=== PATIENT | female | born 1980 | race Caucasian/White ===

== ENCOUNTER → 2017-11-10 | Outpatient (REF) | payer OTHER | LOC: M LAB REF 12:05 | DX: N39.0 Urinary tract infection, site not specified (principal) | CPT/HCPCS: 87186 ==

== ENCOUNTER → 2018-06-30 | Outpatient (CLI) | payer OTHER ==
[2018-06-30 15:39] LABS: BASO % 0.4 % (0.0-1.0); EOS # 0.2 10^3/uL (0.0-0.50); EOS % 1.7 % (0.0-3.0); HEMATOCRIT 37.5 % (36.0-47.0); HEMOGLOBIN 12.9 g/dl (12.0-15.5); IMMATURE GRANULOCYTE % 0.2 % (0-3.0); LYMPH # 1.3 10^3/uL (1.5-4.5); LYMPH % 13.9 % (24.0-44.0); MEAN CORPUSCULAR HEMOGLOBIN 30.3 pg (27.0-33.0); MEAN CORPUSCULAR HGB CONC 34.4 g/dl (32.0-36.5); MONO # 0.5 10^3/uL (0.0-0.8); MONO % 5.4 % (0.0-5.0); NEUTROPHILS # 7.3 10^3/uL (1.8-7.7); NEUTROPHILS % 78.4 % (36.0-66.0); PLATELET COUNT, AUTOMATED 265 10^3/uL (150-450); RED BLOOD COUNT 4.26 10^6/uL (4.00-5.40); RED CELL DISTRIBUTION WIDTH 12.4 % (11.5-14.5); WHITE BLOOD COUNT 9.3 10^3/uL (4.0-10.0)
[2018-06-30 16:08] LABS: FREE T4 1.05 NG/DL (0.76-1.46)
[2018-06-30 16:20] LABS: RUBELLA IgG QUALITATIVE IMMUNE (IMMUNE)
[2018-06-30 16:21] LABS: HBsAg Prenatal NEGATIVE (NEGATIVE)
[2018-06-30 16:49] LABS: HEPATITIS C VIRUS ABY INDEX 0.1 INDEX (<0.8)
[2018-06-30 17:20] LABS: CHLAMYDIA DNA AMPLIFICATION NEGATIVE (NEGATIVE); GC DNA AMPLIFICATION NEGATIVE (NEGATIVE)
[2018-06-30 18:28] LABS: HIV 1&2 SCREEN CENTAUR NEGATIVE (NEGATIVE)
[2018-07-04 00:06] LABS: TOXOPLASMA IgM ABY <3.0 AU/mL (0.0-7.9)
[2018-07-04 00:06] LABS: TOXOPLASMA IgG ABY <3.0 IU/mL (0.0-7.1)
== END ==
LOC: M LAB 14:53
DX: Z36.89 Encounter for other specified antenatal screening (principal)
CPT/HCPCS: 84443

== ENCOUNTER → 2018-09-12 | Outpatient (CLI) | payer OTHER ==
[2018-09-12 14:41] LABS: FREE T4 1.05 NG/DL (0.76-1.46); THYROID STIMULATING HORMONE 2.6 uIU/ML (0.358-3.740)
== END ==
LOC: M LAB 13:24
PROVIDERS: ATTEND Obstetrics & Gynecology
DX: O09.522 Supervision of elderly multigravida, second trimester (principal)

== ENCOUNTER → 2018-09-13 | Outpatient (CLI) | payer OTHER ==
--- NOTE | 2018-09-14 05:40 | REP ---
Clinical: Anatomical evaluation. Comparison: None . Findings: Examination demonstrates a single live intrauterine in cephalic presentation. motion is identified by technologist. Placenta is noted anterior and grade grade zero without evidence for placenta previa or abruption. Amniotic fluid volume is normal. Cervix measures 4.8 cm in length and appears closed. No evidence for nuchal cord. Gestational age by LMP 21 weeks 5 days with MONSE 01/19/2019 . Gestational age by current measurements 21 weeks 5 days with MONSE 01/19/2019 . FHR equals 150 beats per minute. BPD 5.4 cm 22 weeks 2 days HC 18.8 cm 21 weeks 1 day AC 17.9 cm 22 weeks 6 days FL 3.7 cm 21 weeks 6 days HL 3.6 cm 22 weeks 5 days HC/AC ratio 1.05 Estimated weight 491 grams ( 65th percentile). Anatomical assessment demonstrates normal structures including cranium, choroid plexus, cavum, cerebellum/posterior fossa, facial features, lungs, four-chamber heart/ventricular outflow tracts, diaphragm, stomach, cord insertion/three-vessel cord, kidneys/bladder, spine, and extremities. Impression: Single live intrauterine in cephalic presentation demonstrating appropriate interval growth. Anatomical assessment is complete and normal. No gross abnormalities are identified. Electronically Signed by Víctor Perea MD 09/14/2018 05:31 A
== END ==
LOC: M SMT 08:38
PROVIDERS: ATTEND Obstetrics & Gynecology
DX: O09.522 Supervision of elderly multigravida, second trimester (principal); Z3A.21 21 weeks gestation of pregnancy

== ENCOUNTER → 2018-10-16 | Outpatient (CLI) | payer OTHER ==
[2018-10-16 18:15] LABS: HEMATOCRIT 33.3 % (36.0-47.0); HEMOGLOBIN 11.1 g/dl (12.0-15.5); MEAN CORPUSCULAR HEMOGLOBIN 30.1 pg (27.0-33.0); MEAN CORPUSCULAR HGB CONC 33.3 g/dl (32.0-36.5); MEAN CORPUSCULAR VOLUME 90.2 fl (80.0-96.0); PLATELET COUNT, AUTOMATED 238 10^3/uL (150-450); RED BLOOD COUNT 3.69 10^6/uL (4.00-5.40); WHITE BLOOD COUNT 10.6 10^3/uL (4.0-10.0)
== END ==
LOC: M SMT 13:16
PROVIDERS: ATTEND Obstetrics & Gynecology
DX: O09.522 Supervision of elderly multigravida, second trimester (principal); Z3A.00 Weeks of gestation of pregnancy not specified
CPT/HCPCS: 36415; 82950; 85027; 86850; 86900; 86901; J2790

== ENCOUNTER → 2018-11-13 | Outpatient (CLI) | payer OTHER ==
[2018-11-13 13:47] LABS: FREE T4 1.05 NG/DL (0.76-1.46); THYROID STIMULATING HORMONE 3.15 uIU/ML (0.358-3.740)
== END ==
LOC: M SMT 09:38
PROVIDERS: ATTEND Advanced Practice Midwife
DX: O99.89 Other specified diseases and conditions complicating pregnancy, childbirth and the puerperium (principal); Z3A.00 Weeks of gestation of pregnancy not specified

== ENCOUNTER → 2018-12-21 | Outpatient (CLI) | payer OTHER ==
[2018-12-21 15:02] LABS: FREE T4 0.96 NG/DL (0.76-1.46)
[2018-12-22 12:31] LABS: HIV 1&2 SCREEN CENTAUR NEGATIVE (NEGATIVE)
== END ==
LOC: M SMT 08:34
PROVIDERS: ATTEND Advanced Practice Midwife
DX: O09.513 Supervision of elderly primigravida, third trimester (principal); Z3A.00 Weeks of gestation of pregnancy not specified

== ENCOUNTER 2019-01-19 02:11 | Inpatient (IN) | payer OTHER ==
[2019-01-19] VITALS (22 sets, daily range): BP systolic 105–141; BP diastolic 55–94
[~2019-01-19] VITALS: Ht 167.6 cm; Wt 97.3 kg
[2019-01-19] MEDS ORDERED: LEVO125T4 PO (03:55)
[2019-01-19] MEDS ORDERED: PRENTAB9 PO (03:56)
[2019-01-19] MEDS ORDERED: LR 1,000 ML IV SCH (03:59)
[2019-01-19] MEDS ORDERED: LACTATED RINGER'S 1000 ML IV STA (03:59)
[2019-01-19 04:13] LABS: HEMATOCRIT 37.9 % (36.0-47.0); HEMOGLOBIN 12.7 g/dl (12.0-15.5); MEAN CORPUSCULAR HGB CONC 33.5 g/dl (32.0-36.5); MEAN CORPUSCULAR VOLUME 86.5 fl (80.0-96.0); PLATELET COUNT, AUTOMATED 216 10^3/uL (150-450); RED BLOOD COUNT 4.38 10^6/uL (4.00-5.40); WHITE BLOOD COUNT 15.8 10^3/uL (4.0-10.0)
[2019-01-19] MEDS ORDERED: OXYTOCIN DRIP 30 UNITS in APPROPRIATE DILUENT 1 EA IV SCH (06:15)
--- NOTE | 2019-01-19 07:12 | HPE ---
DATE OF ADMISSION: 01/19/2019 REASON FOR ADMISSION: Spontaneous rupture of membranes. HISTORY OF PRESENT ILLNESS: Mrs. Araiza is a 38-year-old, 1, that presents at 40 weeks 0 days by her last menstrual period and confirmed by a first trimester ultrasound with complaints of contractions and leakage of clear fluid that occurred approximately at 2:30 a.m. She reports active movement. Denies any vaginal bleeding. Her course has been unremarkable. She initiated care in her first trimester. PAST MEDICAL HISTORY: Hypothyroidism. PAST SURGICAL HISTORY: She has a pilonidal cyst removal. MEDICATIONS: - Synthroid 112 mcg - vitamin ALLERGIES: She has a childhood allergy to AUGMENTIN, does not know her reaction. SOCIAL HISTORY: Denies any alcohol, tobacco or drug use during . PHYSICAL EXAMINATION: Her vital signs are stable. She is afebrile. She has a category one heart tracing with contractions on tocometer. General Appearance: Well appearing, in no acute distress. Lungs: Clear to auscultation bilaterally. Cardiovascular: Heart regular rate and rhythm. Abdomen is soft, gravid, nontender. Estimated weight (EFW) 3800 grams. Cervical Exam: She is 5 cm dilated, 90% effaced, grossly ruptured. LABS: Blood type is A negative. Antibody screen is negative. Rubella is immune. RPR is nonreactive. Hepatitis surface antigen negative. HIV is negative. Hepatitis C is nonreactive. Chlamydia and gonorrhea screens are negative. She had a normal 1-hour Glucola. She is GBS negative. ASSESSMENT: 1. Mrs. Araiza is a 38-year-old, 1, at 40 weeks 0 days estimated gestational age by last menstrual period and confirmed by a first trimester ultrasound with spontaneous rupture of membranes. 2. Reassuring status. PLAN: 1. To admit to Labor and Delivery CBC, RPR, type and screen. 2. The patient has been thoroughly counseled in regards to medications, procedures performed in Labor and Delivery, and she has been counseled on augmentation of labor if there is on progression of her labor with Pitocin. I have also verbally consented her for emergency surgery, blood products and anesthesia and she desires to proceed with admission.
[2019-01-19] MEDS: LEVOTHYROXINE 125MCG TABLET (0.125MG) PO SCH ×2 (08:34→09:36)
[2019-01-19] MEDS: PRENATAL VITAMINS CHEWABLE TABLET PO SCH (09:00)
--- NOTE | 2019-01-19 09:32 | IPNPDOC ---
Text Note Date of Service The patient was seen on 01/19/19. NOTE Pitocin @ 2 mu UC 2-3 minutes apart, strong Cat I tracing Sporadic bearing down efforts SVE 8/100/0, AROM forbag small amount clear fluid VS,Fishbone, I+O VS, Fishbone, I+O Laboratory Tests 01/19/19 03:50 Red Blood Count 4.38, Mean Corpuscular Volume 86.5, Mean Corpuscular Hemoglobin 29.0, Mean Corpuscular Hemoglobin Concent 33.5, Red Cell Distribution Width 13.2 Vital Signs Date Time Temp Pulse Resp B/P (MAP) Pulse Ox O2 Delivery O2 Flow Rate FiO2 01/19/19 06:15 98.0 59 18 121/72 (88) 01/19/19 02:50 96 01/19/19 02:43 Room Air Zaida Brown CNM Jan 19, 2019 09:32
[2019-01-19 12:32] LABS: CORD GAS ABE A -10.6; CORD GAS HCO3 A 20.2 MEQ/L; CORD GAS O2 SAT A 67.2 %; CORD GAS PCO2 A 65.7 mmHg; CORD GAS PH A 7.105 UNITS; CORD GAS PO2 A 39.4 mmHg; CORD GAS SBC A 15.6 MEQ/L; CORD GAS TCO2 A 22.2 MEQ/L
[2019-01-19 12:33] LABS: CORD GAS ABE V -7.6; CORD GAS HCO3 V 17.8 MEQ/L; CORD GAS O2 SAT V 87.4 %; CORD GAS PH V 7.311 UNITS; CORD GAS PO2 V 48.2 mmHg; CORD GAS SBC V 18.2 MEQ/L; CORD GAS TCO2 V 18.9 MEQ/L
[2019-01-19] MEDS ORDERED: DIBUCAINE 1% OINTMENT 30GM TOP PRN (12:45)
[2019-01-19] MEDS ORDERED: METHYLERGONOVINE MALEATE 0.2 MG TAB PO SCH (12:45)
[2019-01-19] MEDS ORDERED: IBUPROFEN 600 MG TAB PO PRN (12:45)
[2019-01-19] MEDS ORDERED: ACETAMINOPHEN TAB 650MG DOSE (2X325MG) PO PRN (12:45)
[2019-01-19] MEDS ORDERED: METHYLERGONOVINE MALEATE 0.2 MG TAB PO ONE (12:45)
[2019-01-19] MEDS ORDERED: LIDOCAINE 1% MDV 20ML VIAL INFIL ONE (12:45)
[2019-01-19] MEDS ORDERED: RHOGAM 300 MCG (1500 IU) INJ (J2790) IM SCH (12:45)
[2019-01-19] MEDS ORDERED: DOCUSATE SODIUM 100 MG CAP PO PRN (12:45)
[2019-01-19] MEDS ORDERED: MEASLES,MUMPS,RUBELLA VACCINE INJ (MMR-II) (90707) SC SCH (12:45)
[2019-01-19] MEDS ORDERED: MOM 30ML SUSPENSION UDC PO PRN (12:45)
[2019-01-19] MEDS ORDERED: ANUSOL HC CREAM 30GM TOP PRN (12:45)
[2019-01-19] MEDS ORDERED: ACETAMINOPHEN 500 MG TAB PO PRN (12:45)
[2019-01-19] MEDS ORDERED: IBUPROFEN 800 MG TAB PO PRN (12:45)
--- NOTE | 2019-01-19 12:51 | DNPDOC ---
[facility] Delivery Note Delivery Note DATE OF DELIVERY: January 19, 2019 PREDELIVERY DIAGNOSIS: 40-0/7 weeks' gestation and labor. POST DELIVERY DIAGNOSIS: Delivered. PROCEDURE: Spontaneous vaginal delivery. PROVIDER: Zaida Brown CNM ANESTHESIA: None. ESTIMATED BLOOD LOSS: 350 mL. FINDINGS: 8 pound 13 ounce, 4000gm male infant, Score 7/8, occult loop of cord at level of chest. DELIVERY SUMMARY: Patient is a 38-year-old 1 now para 1-0-0-1 who was a dmitted to labor and delivery for spontaneous rupture of membranes @ 0310. She received pitocin augmentation of labor. She utilized physiologic coping mechanisms. FD 1112. Viable male delivered JANET without difficulty @ 1210, occult loop of cord @ level of chest. Spontaneous respirations with stimulation, transitioned on maternal abdomen. Cord gases arterial7.105 with BE -10.6 and venous 7.311 with BE -7.6. Cord doubly clamped and cut by FOB under my direction, infant to warmer for further stimulation. Apgars 7/8. Placenta henderson, intact with 3v cord @ 1210. Fundus firmed with massage and IV pitocin bolus. EBL 350. 1st degree R vaginal laceration repaired after infiltration with lidocaine using 3-0 vicryl rapide. L labial abrasion reapproximated using the s deedee suture with one stitch. wt 4000gm, 8#13. Sponge, sharp and instrument count correct. Parents are naming their son Ken. Zaida Brown CNM Jan 19, 2019 12:51
[2019-01-19] MEDS ORDERED: SLF 3 ML SYR IV PRN (15:00)
[2019-01-19] MEDS: METHYLERGONOVINE MALEATE 0.2 MG TAB PO SCH (18:39)
[2019-01-19] MEDS: SLF 3 ML SYR IV SCH (22:00)
[2019-01-20] MEDS: METHYLERGONOVINE MALEATE 0.2 MG TAB PO SCH ×2 (00:52→06:51)
[2019-01-20] MEDS: LEVOTHYROXINE 125MCG TABLET (0.125MG) PO SCH (05:48)
[2019-01-20] MEDS: SLF 3 ML SYR IV SCH ×3 (05:49→22:00)
[2019-01-20 06:00] VITALS: BP 115/64
--- NOTE | 2019-01-20 07:20 | IPNPDOC ---
Text Note Date of Service The patient was seen on 01/20/19. NOTE Day 1 Feels well. Happy with experience. on demand. Voiding QS VSS. Breasts soft, nipples intact Fundus firm, down 2 FB Lochia rubra light without odor Perineum well approximated PP #1, Routine care Anticipate D/C in am VS,Fishbone, I+O VS, Fishbone, I+O Vital Signs Date Time Temp Pulse Resp B/P (MAP) Pulse Ox O2 Delivery O2 Flow Rate FiO2 01/20/19 06:00 98.0 81 18 115/64 (81) 01/19/19 14:23 96 01/19/19 02:43 Room Air I&O- Last 24 Hours up to 6 AM 01/20/19 06:00 Intake Total 2200.0 ml Output Total 1600 ml Balance 600.0 ml Zaida Brown CNM Jan 20, 2019 07:20
[2019-01-20] MEDS: PRENATAL VITAMINS CHEWABLE TABLET PO SCH (08:34)
[2019-01-20] MEDS ORDERED: PRENATAL VITAMINS CHEWABLE TABLET PO SCH (09:00)
[2019-01-20] MEDS ORDERED: METHYLERGONOVINE MALEATE 0.2 MG TAB PO PRN (12:00)
[2019-01-20 18:00] VITALS: BP 123/68
[2019-01-21] MEDS: SLF 3 ML SYR IV SCH (06:00)
[2019-01-21] MEDS: LEVOTHYROXINE 125MCG TABLET (0.125MG) PO SCH (06:03)
[2019-01-21 06:16] VITALS: BP 107/63
[2019-01-21] MEDS: PRENATAL VITAMINS CHEWABLE TABLET PO SCH (08:16)
--- NOTE | 2019-01-21 09:28 | NUR ---
Day 2 Status post , uncomplicated Subjective Pain is well controlled. Lochia decreasing and minimal. Voiding spontaneously. Tolerating a regular diet. Ambulating without any assistance. Denies any subjective fever/chills/nausea/vomiting/headache/visual changes/shortness of breath/chest pain. Breast feeding. Objective Vitals: Normotensive, normal heart rate, afebrile, adequate urine output. Heart: regular, rate, and rhythm. no murmurs/gallops/rubs Lungs: clear to auscultation bilaterally, no wheezes/crackles/rales/ronchi Abd: soft, nontender, nondistended, uterine fundus is 2cm below umbilicus and firm Ext: no significant edema, nontender, negative Deborah's bilaterally. Assessment/Plan: day 2. Recovering well. Hemodynamically stable, afebrile, good pain control. -Routine care -Discharge to home today. -Routine infectious, fever, pain, and bleeding precautions reviewed Dr. Chris Zayas, Irlanda.Mary Ann., F.A.C.O.G.
[2019-01-21] MEDS ORDERED: IBUP80TA PO (09:31)
== END 2019-01-21 11:10 | disposition home or self-care (01) | DRG 807 ==
LOC: M LDO 02:11 → M LDI 03:09 → M OBS 14:35
PROVIDERS: ADMIT Obstetrics & Gynecology; ATTEND Advanced Practice Midwife
PROC: 10E0XZZ Delivery of Products of Conception, External Approach (ICD-10-PCS; principal; 2019-01-19)
PROC: 0HQ9XZZ Repair Perineum Skin, External Approach (ICD-10-PCS; 2019-01-19)
DX: O69.82X0 Labor and delivery complicated by other cord entanglement, without compression, not applicable or unspecified (principal); Z37.0 Single live birth; Z3A.40 40 weeks gestation of pregnancy; O70.0 First degree perineal laceration during delivery

== ENCOUNTER → 2019-03-20 | Outpatient (CLI) | payer OTHER ==
[~2019-03-20] MED LIST: IBUP80TA PO; LEVO125T4 PO; PRENTAB9 PO
[2019-03-20 13:40] LABS: BASO % 0.7 % (0.0-1.0); EOS # 0.2 10^3/uL (0.0-0.50); EOS % 3.5 % (0.0-3.0); HEMATOCRIT 42.4 % (36.0-47.0); HEMOGLOBIN 13.6 g/dl (12.0-15.5); LYMPH # 1.7 10^3/uL (1.5-4.5); LYMPH % 28.5 % (24.0-44.0); MEAN CORPUSCULAR HGB CONC 32.1 g/dl (32.0-36.5); MEAN CORPUSCULAR VOLUME 87.4 fl (80.0-96.0); MONO # 0.4 10^3/uL (0.0-0.8); MONO % 6.7 % (0.0-5.0); NEUTROPHILS # 3.5 10^3/uL (1.8-7.7); NEUTROPHILS % 60.4 % (36.0-66.0); PLATELET COUNT, AUTOMATED 294 10^3/uL (150-450); RED BLOOD COUNT 4.85 10^6/uL (4.00-5.40); WHITE BLOOD COUNT 5.8 10^3/uL (4.0-10.0)
[2019-03-20 14:02] LABS: ALBUMIN 4.2 GM/DL (3.2-5.2); ALT/SGPT 53 U/L (12-78); BILIRUBIN,TOTAL 0.4 MG/DL (0.2-1.0); BLOOD UREA NITROGEN 11 MG/DL (7-18); CALCIUM LEVEL 9.4 MG/DL (8.5-10.1); CARBON DIOXIDE LEVEL 26 MEQ/L (21-32); CHLORIDE LEVEL 108 MEQ/L (98-107); CHOLESTEROL LEVEL 211 MG/DL (<200); CHOLESTEROL RISK RATIO 2.131 (<5); CREATININE FOR GFR 0.82 MG/DL (0.55-1.30); FREE T4 1.31 NG/DL (0.76-1.46); GLOMERULAR FILTRATION RATE > 60.0 (>60); GLUCOSE, FASTING 77 MG/DL (70-100); HDL CHOLESTEROL 99 MG/DL (>40); LDL CHOLESTEROL 102 MG/DL (<100); NON-HDL-C 112 MG/DL; POTASSIUM SERUM 4.5 MEQ/L (3.5-5.1); SODIUM LEVEL 141 MEQ/L (136-145); THYROID STIMULATING HORMONE 0.254 uIU/ML (0.358-3.740); TOTAL PROTEIN 7.4 GM/DL (6.4-8.2); TRIGLYCERIDES LEVEL 51 MG/DL (<150)
[2019-03-20 16:17] LABS: HEMOGLOBIN A1c 5.7 %
== END ==
LOC: M SMT 10:50
PROVIDERS: ATTEND Nurse Practitioner Adult Health
DX: R53.83 Other fatigue (principal); E03.9 Hypothyroidism, unspecified; Z13.228 Encounter for screening for other metabolic disorders; Z79.899 Other long term (current) drug therapy

== ENCOUNTER → 2019-06-14 | Outpatient (REF) | payer MEDICAID, OTHER, SELFPAY ==
[2019-06-14 16:53] LABS: BASO # 0.1 10^3/uL (0.0-0.2); BASO % 0.8 % (0.0-1.0); EOS # 0.2 10^3/uL (0.0-0.5); EOS % 3.7 % (0.0-3.0); HEMATOCRIT 41.4 % (36.0-47.0); HEMOGLOBIN 13.2 g/dl (12.0-15.5); LYMPH # 1.6 10^3/uL (1.5-5.0); LYMPH % 26.3 % (24.0-44.0); MEAN CORPUSCULAR HEMOGLOBIN 28.6 pg (27.0-33.0); MEAN CORPUSCULAR HGB CONC 31.9 g/dl (32.0-36.5); MEAN CORPUSCULAR VOLUME 89.8 fl (80.0-96.0); MONO # 0.5 10^3/uL (0.0-0.8); MONO % 7.8 % (0.0-5.0); NEUTROPHILS # 3.6 10^3/uL (1.5-8.5); NEUTROPHILS % 61.2 % (36.0-66.0); PLATELET COUNT, AUTOMATED 299 10^3/uL (150-450); RED BLOOD COUNT 4.61 10^6/uL (4.00-5.40); WHITE BLOOD COUNT 5.9 10^3/uL (4.0-10.0)
[2019-06-14 17:04] LABS: ALT/SGPT 31 U/L (12-78); BILIRUBIN,TOTAL 0.2 MG/DL (0.2-1.0); BLOOD UREA NITROGEN 13 MG/DL (7-18); CALCIUM LEVEL 9.4 MG/DL (8.5-10.1); CARBON DIOXIDE LEVEL 31 MEQ/L (21-32); CHLORIDE LEVEL 108 MEQ/L (98-107); CREATININE FOR GFR 0.83 MG/DL (0.55-1.30); FREE T3 2.5 PG/ML (2.2-4.0); FREE T4 1.06 NG/DL (0.76-1.46); GLOMERULAR FILTRATION RATE > 60.0 (>60); GLUCOSE, FASTING 76 MG/DL (70-100); SODIUM LEVEL 144 MEQ/L (136-145); TOTAL PROTEIN 7.4 GM/DL (6.4-8.2)
[2019-06-15 12:10] LABS: THYROID PEROXIDASE ANTIBODY < 28.0 U/ML (<60.0)
== END ==
LOC: M LABDRAWP 13:33
PROVIDERS: ATTEND Nurse Practitioner Adult Health
DX: E03.9 Hypothyroidism, unspecified (principal); L30.9 Dermatitis, unspecified; Z79.899 Other long term (current) drug therapy

== ENCOUNTER → 2019-09-13 | Outpatient (CLI) | payer OTHER ==
[2019-09-13 16:31] LABS: BASO # 0.1 10^3/uL (0.0-0.2); BASO % 0.8 % (0.0-1.0); EOS # 0.2 10^3/uL (0.0-0.5); EOS % 2.5 % (0.0-3.0); HEMATOCRIT 41.4 % (36.0-47.0); HEMOGLOBIN 13.5 g/dl (12.0-15.5); LYMPH # 1.5 10^3/uL (1.5-5.0); LYMPH % 24.5 % (24.0-44.0); MEAN CORPUSCULAR HEMOGLOBIN 29.3 pg (27.0-33.0); MEAN CORPUSCULAR HGB CONC 32.6 g/dl (32.0-36.5); MONO # 0.4 10^3/uL (0.0-0.8); MONO % 6.3 % (0.0-5.0); NEUTROPHILS % 65.7 % (36.0-66.0); PLATELET COUNT, AUTOMATED 262 10^3/uL (150-450); WHITE BLOOD COUNT 6.1 10^3/uL (4.0-10.0)
[2019-09-13 16:42] LABS: ALT/SGPT 23 U/L (12-78); BILIRUBIN,TOTAL 0.2 MG/DL (0.2-1.0); BLOOD UREA NITROGEN 14 MG/DL (7-18); CALCIUM LEVEL 8.9 MG/DL (8.5-10.1); CARBON DIOXIDE LEVEL 28 MEQ/L (21-32); CHLORIDE LEVEL 108 MEQ/L (98-107); CHOLESTEROL LEVEL 182 MG/DL (<200); CHOLESTEROL RISK RATIO 2.022 (<5); CREATININE FOR GFR 0.66 MG/DL (0.55-1.30); FREE T3 2.5 PG/ML (2.2-4.0); FREE T4 1.07 NG/DL (0.76-1.46); GLOMERULAR FILTRATION RATE > 60.0 (>60); GLUCOSE, FASTING 75 MG/DL (70-100); HDL CHOLESTEROL 90 MG/DL (>40); LDL CHOLESTEROL 83 MG/DL (<100); NON-HDL-C 92 MG/DL; POTASSIUM SERUM 4.3 MEQ/L (3.5-5.1); SODIUM LEVEL 141 MEQ/L (136-145); THYROXINE (T4) 10.1 UG/DL (4.5-12.0); TOTAL PROTEIN 7.1 GM/DL (6.4-8.2); TRIGLYCERIDES LEVEL 44 MG/DL (<150)
[2019-09-13 16:49] LABS: HEMOGLOBIN A1c 5.6 %
[2019-09-14 11:00] LABS: THYROID PEROXIDASE ANTIBODY 38.1 U/ML (<60.0)
== END ==
LOC: M WUC 11:53
PROVIDERS: ATTEND Nurse Practitioner Adult Health
DX: E03.9 Hypothyroidism, unspecified (principal); Z79.899 Other long term (current) drug therapy

== ENCOUNTER → 2019-10-25 | Outpatient (REF) | payer MEDICAID, MEDICARE, OTHER | LOC: M LAB REF 17:39 | PROVIDERS: ATTEND Dermatology | DX: D18.01 Hemangioma of skin and subcutaneous tissue (principal) ==

== ENCOUNTER → 2020-01-21 | Outpatient (CLI) | payer OTHER, MEDICARE, MEDICAID | LOC: M WUC 13:52 | PROVIDERS: ATTEND Advanced Practice Midwife | DX: O26.899 Other specified pregnancy related conditions, unspecified trimester (principal); R10.9 Unspecified abdominal pain ==

== ENCOUNTER → 2020-01-23 | Outpatient (CLI) | payer OTHER, MEDICARE, MEDICAID | LOC: M WUC 13:12 | PROVIDERS: ATTEND Advanced Practice Midwife | DX: O26.899 Other specified pregnancy related conditions, unspecified trimester (principal); R10.9 Unspecified abdominal pain ==

== ENCOUNTER → 2020-03-07 | Outpatient (REF) | payer OTHER, MEDICARE, MEDICAID ==
[2020-04-12 12:23] LABS: CHLAMYDIA DNA AMPLIFICATION NEGATIVE (NEGATIVE); GC DNA AMPLIFICATION NEGATIVE (NEGATIVE)
[2020-04-24 20:18] LABS: HEMATOCRIT 35.2 % (36.0-47.0); HEMOGLOBIN 11.8 g/dl (12.0-15.5); MEAN CORPUSCULAR HGB CONC 33.5 g/dl (32.0-36.5); MEAN CORPUSCULAR VOLUME 89.6 fl (80.0-96.0); PLATELET COUNT, AUTOMATED 235 10^3/uL (150-450); RED BLOOD COUNT 3.93 10^6/uL (4.00-5.40); WHITE BLOOD COUNT 7.9 10^3/uL (4.0-10.0)
== END ==
LOC: M LABWUC 09:09
PROVIDERS: ATTEND Advanced Practice Midwife
DX: O09.529 Supervision of elderly multigravida, unspecified trimester (principal)

== ENCOUNTER → 2020-04-09 | Outpatient (CLI) | payer OTHER ==
--- NOTE | 2020-04-22 16:37 | REP ---
COMPLETE OBSTETRIC ULTRASOUND CLINICAL: Anatomical evaluation. TECHNIQUE: Transabdominal obstetrical ultrasound with color Doppler evaluation. FINDINGS: Ultrasound examination demonstrates a single live intrauterine in cephalic presentation. motion was identified by the technologist. Placenta is noted posteriorly and grade 1 without evidence for placenta previa or abruption. Amniotic fluid volume is normal. Cervix measures 3.2 cm in length and appears closed. No evidence for nuchal cord. Uterus includes anterior intramural fibroid measuring 1.1 cm in maximal diameter. Gestational age by current measurements 19 weeks 4 days with estimated date of delivery 08/30/2020. heart rate 143 beats per minute. BIOMETRIC MEASUREMENTS: BPD 42 cm 18 weeks 5 days HC 16.3 cm 19 weeks 0 days AC 14.8 cm 20 weeks 0 days FL 3.1 cm 19 weeks 4 days HL 3.1 cm 20 weeks 1 day HC/AC RATIO1 1.10 Estimated weight 309 grams 85th percentile Anatomical assessment demonstrates normal cranium, choroid plexus, cavum, ventricles, cerebellum/posterior fossa, facial features, four chamber heart/ventricular outflow tracts, diaphragm, stomach, three-vessel cord/cord insertion, kidneys, bladder, spine, and extremities. IMPRESSION: Single live intrauterine in cephalic presentation demonstrating appropriate estimated weight. Anatomical assessment is complete and normal. Uterine fibroid MTDD
== END ==
LOC: M WHC 09:02
PROVIDERS: ATTEND Advanced Practice Midwife
DX: O34.12 Maternal care for benign tumor of corpus uteri, second trimester (principal); Z36.89 Encounter for other specified antenatal screening; Z3A.19 19 weeks gestation of pregnancy; D25.1 Intramural leiomyoma of uterus

== ENCOUNTER → 2020-04-10 | Outpatient (CLI) | payer OTHER ==
[2020-04-10 14:54] LABS: FREE T4 1.04 NG/DL (0.76-1.46)
[2020-04-10 18:00] LABS: HEPATITIS C VIRUS ABY INDEX 0.1 INDEX (<0.8)
[2020-04-10 18:01] LABS: HIV 1&2 SCREEN CENTAUR NEGATIVE (NEGATIVE)
[2020-04-15 15:07] LABS: CHLAMYDIA DNA AMPLIFICATION NEGATIVE (NEGATIVE); GC DNA AMPLIFICATION NEGATIVE (NEGATIVE)
== END ==
LOC: M PLALAB 10:05
PROVIDERS: ATTEND Advanced Practice Midwife
DX: Z34.82 Encounter for supervision of other normal pregnancy, second trimester (principal); Z3A.00 Weeks of gestation of pregnancy not specified

== ENCOUNTER → 2020-05-28 | Outpatient (CLI) | payer OTHER, MEDICARE, MEDICAID ==
[2020-05-28 14:10] LABS: HEMATOCRIT 33.8 % (36.0-47.0); MEAN CORPUSCULAR HEMOGLOBIN 30.2 pg (27.0-33.0); MEAN CORPUSCULAR HGB CONC 32.5 g/dl (32.0-36.5); MEAN CORPUSCULAR VOLUME 92.9 fl (80.0-96.0); PLATELET COUNT, AUTOMATED 229 10^3/uL (150-450); RED BLOOD COUNT 3.64 10^6/uL (4.00-5.40); WHITE BLOOD COUNT 9.8 10^3/uL (4.0-10.0)
== END ==
LOC: M PLALAB 09:39
PROVIDERS: ATTEND Obstetrics & Gynecology
DX: Z3A.23 23 weeks gestation of pregnancy (principal)

== ENCOUNTER → 2020-06-18 | Outpatient (REF) | payer OTHER ==
[2020-06-18 14:13] LABS: THYROID STIMULATING HORMONE 2.5 uIU/ML (0.358-3.740)
== END ==
LOC: M PLALAB 11:56
PROVIDERS: ATTEND Obstetrics & Gynecology
DX: E03.9 Hypothyroidism, unspecified (principal)

== ENCOUNTER → 2020-08-05 | Outpatient (REF) | payer OTHER | LOC: M PLALAB 08:24 | PROVIDERS: ATTEND Obstetrics & Gynecology | DX: Z34.93 Encounter for supervision of normal pregnancy, unspecified, third trimester (principal); Z3A.35 35 weeks gestation of pregnancy ==

== ENCOUNTER 2020-08-29 10:45 | Inpatient (IN) | payer OTHER ==
[~2020-08-29] VITALS: Ht 167.6 cm; Wt 100.9 kg
[2020-08-29] VITALS (16 sets, daily range): BP systolic 107–139; BP diastolic 58–79
--- OUTSIDE RECORDS SUMMARY | 2020-08-29 10:49 | CCD ---
Author Author [facility] Organization [facility] [employer] [facility] Address Unknown Phone Unavailable Care Team Providers Care Fruit Picker Name Role Phone Anabelle Wilhelm Unavailable PROBLEMS Type Condition ICD9-CM Code [id number] Code Onset Dates Condition S tatus SNOMED Code Notes Problem Supervision of other normal Z34.80 Ac tive 173925863 Problem Hypothyroid E03.9 Active [id number] ALLERGIES No Known Allergies ENCOUNTERS from 1982 to 2020-07-05 Encounter Location Date Provider Diagnosis [facility] [address] [place] [id number] Jun, Anabelle Wilhelm 31 weeks gestation o f Z3A.31 ; Elderly multigravida in third trimester O09.523 ; Endocrine, nutritional and metabolic diseases complicating , third trimester O99.283 ; Hypothyroidism E03.9 and Encounter for immunization Z23 IMMUNIZATIONS Vaccine Route Administration Date Status RHo (D) Immune Globulin 300mcg/1.5mL (RhoGAM) IM Intramuscular N 2019 Administered TDAP 0.5mL (Boostrix) IM Intramuscular Jul 02, 2020 Administe red SOCIAL HISTORY Tobacco Use: Social History Observation Description Date Details (start date - stop date) Never Smoker Sex Assigned At : Social History Observation Description Sex Assigned At Unknown Tobacco Use: Question Answer Notes Are you a: never smoker REASON FOR REFERRAL No Information VITAL SIGNS Weight 206.6 lbs Jun, Height 66 in Jun, BMI 33.346 kg/m2 Jun, Blood pressure systolic 110 mm Hg Jun, Blood pressure diastolic 64 mm Hg Jun, MEDICATIONS Medication SIG (Take, Route, Frequency, Duration) Notes Start Da te End Date Status Multivitamin - 1 tablet Orally Once a day Active Synthroid 137 MCG 1 tablet in the morning on a n empty stomach Orally Once a day for 30 day(s) May, Active Levothyroxine Sodium 125 MCG 1 tablet in the morning o n an empty stomach Orally Once a day for 30 day(s) Not-Eliot ing PROCEDURES from 1982 to 2020-07-05 Procedure Date Ordered Result Body Site Immunization: Boostrix 0.5mL IM (TDAP) 2020-07-02 N/A RESULTS No Results REASON FOR VISIT 2WK PN MEDICAL (GENERAL) HISTORY Type Description Date Medical History Hypothyroidism Surgical History Pilonidal cyst removal Hospitalization History childbirth Goals Section No Information Health Concerns No Information MEDICAL EQUIPMENT No Information MENTAL STATUS No Information FUNCTIONAL STATUS No Information ASSESSMENTS Encounter Date Diagnosis Assessment Notes Treatment Notes Treatm ent Clinical Notes Jun, 31 weeks gestation of (ICD-10 - Z3A.31 ) Jun, Elderly multigravida in third trimester (ICD-10 - O09.523) Jun, Endocrine, nutritional and m etabolic diseases complicating , third trimester (ICD-10 - O99.283) Jun, Hypothyroidism (ICD-10 - E03.9) Jun, Encounter for immunization (ICD-10 - Z23) PLAN OF TREATMENT Next Appt Details 4 Weeks Reason:PN Provider Name:Anabelle Wilhelm, 2020-07 10:40:00 AM, [address] [place], [address], Follow Up:4 WeeksPN Insurance Providers Payer Name Payer Address Payer Phone Insured Name Patient Relati onship to Insured Coverage Start Date Coverage End Date [facility] [address] [facility] [phone] FARIDA JACOBSON self
--- OUTSIDE RECORDS SUMMARY | 2020-08-29 10:49 | CCD ---
Author Author [facility] Organization [facility] Address Unknown Phone Unavailable Care Team Providers Care Pin Sorter And Bagger Name Role Phone Anabelle Wilhelm Unavailable PROBLEMS Type Condition ICD9-CM Code [id number] Code Onset Dates Condition S tatus SNOMED Code Notes Problem Supervision of other normal Z34.80 Ac tive 101590880 Problem Hypothyroid E03.9 Active [id number] ALLERGIES No Known Allergies ENCOUNTERS from 1982 to 2020-08-15 Encounter Location Date Provider Diagnosis [facility] [address] [place] [phone] Jul, Anabelle Wilhelm 35 weeks gestation o f Z3A.35 ; Endocrine, nutritional and metabolic diseases complicating , third trimester O99.283 ; Hypothyroid E03.9 and Advanced maternal age, primigravida in third trimester, antepartum O09.513 IMMUNIZATIONS Vaccine Route Administration Date Status RHo [...] FOR REFERRAL No Information VITAL SIGNS Weight 217 lbs Jul, Height 66 in Jul, BMI 35.025 kg/m2 Jul, Blood pressure systolic 114 mm Hg Jul, Blood pressure diastolic 76 mm Hg Jul, MEDICATIONS Medication SIG (Take, Route, Frequency, Duration) Notes Start Da te End Date Status Levothyroxine Sodium 125 MCG 1 tablet in the morning o n an empty stomach Orally Once a day for 30 day(s) Not-Eliot ing Multivitamin - 1 tablet Orally Once a day Active Synthroid 137 MCG 1 tablet in the morning on a n empty stomach Orally Once a day for 30 day(s) May, Active PROCEDURES No Information RESULTS Component Value Reference Range GROUP B STREP CULTURE Reviewed date:08/07/2020 16:17:57 Interpretation: Performing Lab:[facility], [facility] [address] [facility] [id number] , ,[place] [id number] REASON FOR VISIT 1 WK PN MEDICAL (GENERAL) HISTORY Type Description Date Medical History Hypothyroidism Surgical History Pilonidal cyst removal Hospitalization History childbirth Goals Section No Information Health Concerns No Information MEDICAL EQUIPMENT No Information MENTAL STATUS No Information FUNCTIONAL STATUS No Information ASSESSMENTS Encounter Date Diagnosis Assessment Notes Treatment Notes Treatm ent Clinical Notes Jul, 35 weeks gestation of (ICD-10 - Z3A.35 ) Jul, Endocrine, nutritional and m etabolic diseases complicating , third trimester (ICD-10 - O99.283) Jul, Hypothyroid (ICD-10 - E03.9) Jul, Advanced maternal age, primi in third trimester, antepartum (ICD-10 - O09.513) PLAN OF TREATMENT Next Appt Details 2 Weeks Reason:PN Provider Name:Zaida Brown, 2020-08-20 10:00:00 AM, [address] [place], [phone], Follow Up:2 WeeksPN Insurance Providers Payer Name Payer Address Payer Phone Insured Name Patient Relati onship to Insured Coverage Start Date Coverage End Date [facility] COMMUNITY PLAN [facility] [address] [facility] [phone] FARIDA JACOBSON self
--- OUTSIDE RECORDS SUMMARY | 2020-08-29 10:49 | CCD ---
Author Author [facility]st [facility] Organization [facility] [employer] [facility] Address Unknown Phone Unavailable Care Team Providers Care Portfolio Consultant Name Role Phone Anabelle Wilhelm Unavailable PROBLEMS Type Condition ICD9-CM Code [id number] Code Onset Dates Condition S tatus SNOMED Code Notes Problem Supervision of other normal Z34.80 Ac tive 087660431 Problem Hypothyroid E03.9 Active 50301016 ALLERGIES No Known Allergies ENCOUNTERS from 1982 to 2020-08-02 Encounter Location Date Provider Diagnosis [facility] [address] [place] [phone] Jul, Anabelle Wilhelm 35 weeks gestation o f Z3A.35 ; Endocrine, nutritional and metabolic diseases complicating , third trimester O99.283 ; Hypothyroid E03.9 and Supervision of elderly multigravida, third trimester O09.523 IMMUNIZATIONS Vaccine Route Administration Date Status RHo [...] FOR REFERRAL No Information VITAL SIGNS Weight 214 lbs Jul, Blood pressure systolic 120 mm Hg Jul, Blood pressure diastolic 70 mm Hg Jul, MEDICATIONS Medication SIG (Take, [...] day for 30 day(s) Not-Eliot ing PROCEDURES No Information RESULTS No Results REASON FOR VISIT 4WK PN MEDICAL (GENERAL) HISTORY Type Description Date [...] O99.283) Jul, Hypothyroid (ICD-10 - E03.9) Jul, Supervision of elderly multi , third trimester (ICD-10 - O09.523) PLAN OF TREATMENT Next Appt Details 1 Week Reason:PN Provider Name:Anabelle Wilhelm, 2020-07 10:20:00 AM, [address] [place], [address], Follow Up:1 WeekPN Insurance Providers Payer Name Payer Address Payer Phone Insured Name Patient Relati onship to Insured Coverage Start Date Coverage End Date [facility] COMM[facility] PLAN [facility] [address] [facility] [address] [phone] FARIDA JACOBSON self
--- OUTSIDE RECORDS SUMMARY | 2020-08-29 10:50 | CCD ---
Author Author [facility] Organization [facility] Address Unknown Phone Unavailable Care Team Providers Care Bus And Trolley Inspecting Dispatcher Name Role Phone Chris Zayas Unavailable PROBLEMS Type Condition ICD9-CM Code [id number] Code Onset Dates Condition S tatus SNOMED Code Notes Problem Supervision of other normal Z34.80 Ac tive 620202972 ALLERGIES No Known Allergies ENCOUNTERS from 1982 to 2020-06-16 Encounter Location Date Provider Diagnosis [facility] [address] [place] [phone] May, Chris Zayas Advanced maternal ag e, primigravida in second trimester, antepartum O09.512 ; Endocrine, nutritional and metabolic diseases complicating , second trimester O99.282 ; 27 weeks gestation of Z3A.27 ; Hypothyroid E03.9 and related fatigue in second trimester O26.812 IMMUNIZATIONS No Information SOCIAL HISTORY Tobacco Use: Social History Observation Description Date Details (start date - stop date) Never Smoker Sex Assigned At : Social History Observation Description Sex Assigned At Unknown Tobacco Use: Question Answer Notes Are you a: never smoker REASON FOR REFERRAL No Information VITAL SIGNS Weight 199 lbs May, Height 66 in May, BMI 32.119 kg/m2 May, Blood pressure systolic 118 mm Hg May, Blood pressure diastolic 58 mm Hg May, MEDICATIONS Medication SIG (Take, Route, Frequency, Duration) Notes Start Da te End Date Status Levothyroxine Sodium 125 MCG 1 tablet in the morning o n an empty stomach Orally Once a day for 30 day(s) Active Multivitamin - 1 tablet Orally Once a day Active PROCEDURES No Information RESULTS No Results REASON FOR VISIT 4 wk pn MEDICAL (GENERAL) HISTORY Type Description Date Medical History Hypothyroidism Surgical History Pilonidal cyst removal Hospitalization History childbirth Goals Section No Information Health Concerns No Information MEDICAL EQUIPMENT No Information MENTAL STATUS No Information FUNCTIONAL STATUS No Information ASSESSMENTS Encounter Date Diagnosis Assessment Notes Treatment Notes Treatm ent Clinical Notes May, Advanced maternal age, primi in second trimester, antepartum (ICD-10 - O09.512) May, Endocrine, nutritional and m etabolic diseases complicating , second trimester (ICD-10 - O99.282) May, 27 weeks gestation of (ICD-10 - Z3A.27 ) May, Hypothyroid (ICD-10 - E03.9) May, related fatigue in second trimester (I CD-10 - O26.812) PLAN OF TREATMENT Next Appt Details 2 Weeks Reason:PN Provider Name:Chris Zayas, 11:20:00 AM, [facility] [place], [address], Follow Up:2 WeeksPN Insurance Providers Payer Name Payer Address Payer Phone Insured Name Patient Relati onship to Insured Coverage Start Date Coverage End Date [facility] COMMUNITY PLAN [facility] [address] [facility] [phone] FARIDA JACOBSON self
--- OUTSIDE RECORDS SUMMARY | 2020-08-29 10:50 | CCD ---
Author Author [facility]st [facility] Organization [facility] [employer] [facility] [facility] Address Unknown Phone Unavailable Care Team Providers Care Shank Stitcher Name Role Phone NahumMaddie Unavailable PROBLEMS Type Condition ICD9-CM Code ZEA38-IH Code Onset Dates Condition S tatus SNOMED Code Notes Problem Supervision of other normal Z34.80 Ac tive [id number] ALLERGIES No Known Allergies ENCOUNTERS from 1982 to 2020-06-03 Encounter Location Date Provider Diagnosis [facility] [address] [place] [phone] Jan, Maddie Sidhu Hypothyroidism affec ting O99.280 ; Supervision of elderly multigravida, first trimester O09.521 ; Endocrine, nutritional and metabolic diseases complicating , first trimester O99.2 81 ; Hypothyroidism, unspecified E03.9 and 10 weeks gestation of Z3A.10 IMMUNIZATIONS No Information SOCIAL HISTORY Tobacco Use: Social History Observation Description Date Details (start date - stop date) Never Smoker Sex Assigned At : Social History Observation Description Sex Assigned At Unknown Tobacco Use: Question Answer Notes Are you a: never smoker REASON FOR REFERRAL No Information VITAL SIGNS Weight 169 lbs Jan, Height 66 in Jan, BMI 27.277 kg/m2 Jan, Blood pressure systolic 112 mm Hg Jan, Blood pressure diastolic 58 mm Hg Jan, MEDICATIONS Medication SIG (Take, Route, Frequency, Duration) Start Date En d Date Status Multivitamin - 1 tablet Orally Once a day Active Levothyroxine Sodium 125 MCG 1 tablet in the morning o n an empty stomach Orally Once a day for 30 day(s) Active PROCEDURES No Information RESULTS REASON FOR VISIT 1ST PN MEDICAL (GENERAL) HISTORY Type Description Date Medical History Hypothyroidism Surgical History Pilonidal cyst removal Hospitalization History childbirth Goals Section No Information Health Concerns No Information MEDICAL EQUIPMENT No Information MENTAL STATUS No Information FUNCTIONAL STATUS No Information ASSESSMENTS Encounter Date Diagnosis Notes Jan, Hypothyroidism, unspecified (ICD-10 - E0 3.9) Jan, Endocrine, nutritional and m etabolic diseases complicating , first trimester (ICD-10 - O99.281) Jan, 10 weeks gestation of (ICD-10 - Z3A.10) Jan, Supervision of elderly multi , first trimester (ICD-10 - O09.521) Jan, Hypothyroidism affecting (ICD- 10 - O99.280) PLAN OF TREATMENT Next Appt Details 4 Weeks Reason: Provider Name:Chris Zayas 09:00:00 AM, [address] [place], [phone], Insurance Providers Payer Name Payer Address Payer Phone Insured Name Patient Relati onship to Insured Coverage Start Date Coverage End Date [facility] [address] [facility] [phone] FARIDA JACOBSON self
--- OUTSIDE RECORDS SUMMARY | 2020-08-29 10:50 | CCD ---
Author Author [facility] Organization [facility] Address Unknown Phone Unavailable Care Team Providers Care Tire Bladder Maker Name Role Phone Chris Zayas Unavailable PROBLEMS Type Condition ICD9-CM Code [id number] Code Onset Dates Condition S tatus SNOMED Code Notes Problem Supervision of other normal Z34.80 Ac tive 383397452 Problem Hypothyroid E03.9 Active [id number] ALLERGIES No Known Allergies ENCOUNTERS from 1982 to 2020-06-24 Encounter Location Date Provider Diagnosis [facility] [address] [place] [id number] May, Chris Zayas Supervision of elder ly multigravida in third trimester O09.523 ; 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, third trimester, not applicable or unspecified O36.0130 and 29 weeks gestation of Z3A.29 IMMUNIZATIONS Vaccine Route Administration Date Status RHo (D) Immune Globulin 300mcg/1.5mL (RhoGAM) IM Intramuscular N ov 2019 Administered SOCIAL HISTORY Tobacco Use: Social History Observation Description Date Details (start date - stop date) Never Smoker Sex Assigned At : Social History Observation Description Sex Assigned At Unknown Tobacco Use: Question Answer Notes Are you a: never smoker REASON FOR REFERRAL No Information VITAL SIGNS Weight 205 lbs May, Height 66 in May, BMI 33.088 kg/m2 May, Blood pressure systolic 122 mm Hg May, Blood pressure diastolic 62 mm Hg May, MEDICATIONS Medication SIG (Take, Route, Frequency, Duration) Notes Start Da te End Date Status Levothyroxine Sodium 125 MCG 1 tablet in the morning o n an empty stomach Orally Once a day for 30 day(s) Active Synthroid 137 MCG 1 tablet in the morning on a n empty stomach Orally Once a day for 30 day(s) May, Active Multivitamin - 1 tablet Orally Once a day Active PROCEDURES Procedure Date Ordered Result Body Site Injection: RhoGAM 300mcg/1.5mL IM (Rho [D] Immune Globulin H uman) 2020-06-18 N/A RESULTS REASON FOR VISIT 2WK PN MEDICAL (GENERAL) HISTORY Type Description Date Medical History Hypothyroidism Surgical History Pilonidal cyst removal Hospitalization History childbirth Goals Section No Information Health Concerns No Information MEDICAL EQUIPMENT No Information MENTAL STATUS No Information FUNCTIONAL STATUS No Information ASSESSMENTS Encounter Date Diagnosis Assessment Notes Treatment Notes Treatm ent Clinical Notes May, Supervision of elderly multi in third trimester (ICD-10 - O09.523) May, Maternal care for anti-D [Rh ] antibodies, third trimester, not applicable or unspecified (ICD-10 - O36.0130) May, 29 weeks gestation of (ICD-10 - Z3A.29 ) PLAN OF TREATMENT Medication Medication Name Sig Start Date Stop Date Synthroid 137 MCG 1 tablet in the morning on a n empty stomach Orally Once a day for 30 day(s) May, Next Appt Details 2 Weeks Reason:follow-up Provider Name:Anabelle Wilhelm, 2020-06 09:00:00 AM, [address] [place], [id number], Follow Up:2 Weeksfollow-up Insurance Providers Payer Name Payer Address Payer Phone Insured Name Patient Relati onship to Insured Coverage Start Date Coverage End Date [facility] [employer] [facility] [address] [facility] [id number] FARIDA JACOBSON self
--- OUTSIDE RECORDS SUMMARY | 2020-08-29 10:50 | CCD ---
Author Author [facility] Organization [facility] Address Unknown Phone Unavailable Care Team Providers Care International Marketing Coordinator Name Role Phone Justine Brooks ANP-BC Unavailable Unavailable Justine Brooksn ANP-BC Unavailable Unavailable Justine Brooksn ANP-BC Unavailable Unavailable Justine Brooksn ANP-BC Unavailable Unavailable Justine Brooks Hilda ANP-BC Unavailable Unavailable Justine Brooks Hilda ANP-BC Unavailable Unavailable Justine Brooks Hilda ANP-BC Unavailable Unavailable Justine Brooks Hilda ANP-BC Unavailable Unavailable Justine Brooks Hilda ANP-BC Unavailable Unavailable Justine Brooks Hilda ANP-BC Unavailable Unavailable Justine Brooks Hilda ANP-BC Unavailable Unavailable Justine Brooks Hilda ANP-BC Unavailable Unavailable Justine Brooks Hilda ANP-BC Unavailable Unavailable Justine Brooks Hilda ANP-BC Unavailable Unavailable Justine Brooks Hilda ANP-BC Unavailable Unavailable Justine Brooks Hilda ANP-BC Unavailable Unavailable Justine Brooks Hilda ANP-BC Unavailable Unavailable ToddJustine Hilda ANP-BC Unavailable Unavailable ToddJustine Hilda ANP-BC Unavailable Unavailable Justine Brooks Hilda ANP-BC Unavailable Unavailable Justine Brooks Hilda ANP-BC Unavailable Unavailable Todd, Justine Hilda ANP-BC Unavailable Unavailable Todd, Justine Hilda ANP-BC Unavailable Unavailable Todd, Justine Hilda ANP-BC Unavailable Unavailable Todd, Justine Hilda ANP-BC Unavailable Unavailable Todd, Justine Hilda ANP-BC Unavailable Unavailable Todd, Justine Hilda ANP-BC Unavailable Unavailable Todd, Justine Hilda ANP-BC Unavailable Unavailable Todd, Justine Hilda ANP-BC Unavailable Unavailable Todd, Justine Hilda ANP-BC Unavailable Unavailable Todd, Justine Hilda ANP-BC Unavailable Unavailable Todd, Justine Hilda ANP-BC Unavailable Unavailable Todd, Justine Hilda ANP-BC Unavailable Unavailable Todd, Justine Hilda ANP-BC Unavailable Unavailable Todd, Justine Hilda ANP-BC Unavailable Unavailable Todd, Justine Hilda ANP-BC Unavailable Unavailable Todd, Justine Hilda ANP-BC Unavailable Unavailable Todd, Justine Hilda ANP-BC Unavailable Unavailable Todd, Justine Hilda ANP-BC Unavailable Unavailable Todd, Justine Hilda ANP-BC Unavailable Unavailable Todd, Justine Hilda ANP-BC Unavailable Unavailable Todd, Justine Hilda ANP-BC Unavailable Unavailable Todd, Justine Hilda ANP-BC Unavailable Unavailable Todd, Justine Hilda ANP-BC Unavailable Unavailable Todd, Justine Hilda ANP-BC Unavailable Unavailable Todd, Justine Hilda ANP-BC Unavailable Unavailable Todd, Justine Hilda ANP-BC Unavailable Unavailable Todd, Justine Hilda ANP-BC Unavailable Unavailable Todd, Justine Hilda ANP-BC Unavailable Unavailable Todd, Justine Hilda ANP-BC Unavailable Unavailable Todd, Justine Hilda ANP-BC Unavailable Unavailable Todd, Justine Hilda ANP-BC Unavailable Unavailable Todd, Justine Hilda ANP-BC Unavailable Unavailable Todd, Justine Hilda ANP-BC Unavailable Unavailable Todd, Justine Hilda ANP-BC Unavailable Unavailable Todd, Justine Hilda ANP-BC Unavailable Unavailable Todd, Justine Hilda ANP-BC Unavailable Unavailable Todd, Justine Hilda ANP-BC Unavailable Unavailable Todd, Justine Hilda ANP-BC Unavailable Unavailable Todd, Justine Hilda ANP-BC Unavailable Unavailable Todd, Justine Hilda ANP-BC Unavailable Unavailable Todd, Justine Hilda ANP-BC Unavailable Unavailable Todd, Justine Hilda ANP-BC Unavailable Unavailable Todd, Justine Hilda ANP-BC Unavailable Unavailable Todd, Justine Hilda ANP-BC Unavailable Unavailable Todd, Justine Hilda ANP-BC Unavailable Unavailable Todd, Justine Hilda ANP-BC Unavailable Unavailable Todd, Justine Hilda ANP-BC Unavailable Unavailable Todd, Justine Hilda ANP-BC Unavailable Unavailable Todd, Justine Hilda ANP-BC Unavailable Unavailable Todd, Justine Hilda ANP-BC Unavailable Unavailable Todd, Justine Hilda ANP-BC Unavailable Unavailable Todd, Justine Hilda ANP-BC Unavailable Unavailable Todd, Justine Hilda ANP-BC Unavailable Unavailable Todd, Justine Hilda ANP-BC Unavailable Unavailable Todd, Justine Hilda ANP-BC Unavailable Unavailable Todd, Justine Hilda ANP-BC Unavailable Unavailable Todd, Justine Hilda ANP-BC Unavailable Unavailable Todd, Justine Hilda ANP-BC Unavailable Unavailable Todd, Justine Hilda ANP-BC Unavailable Unavailable Todd, Justine Hilda ANP-BC Unavailable Unavailable Todd, Justine Hilda ANP-BC Unavailable Unavailable Todd, Justine Hilda ANP-BC Unavailable Unavailable Todd, Justine Hilda ANP-BC Unavailable Unavailable Todd, Justine Hilda ANP-BC Unavailable Unavailable Todd, Justine Hilda ANP-BC Unavailable Unavailable Todd, Justine Hilda ANP-BC Unavailable Unavailable Todd, Justine Hilda ANP-BC Unavailable Unavailable Todd, Justine Hilda ANP-BC Unavailable Unavailable Todd, Justine Hilda ANP-BC Unavailable Unavailable Todd, Justine Hilda ANP-BC Unavailable Unavailable Todd, Justine Hilda ANP-BC Unavailable Unavailable Todd, Justine Hilda ANP-BC Unavailable Unavailable Todd, Justine Hilda ANP-BC Unavailable Unavailable Todd, Justine Hilda ANP-BC Unavailable Unavailable Todd, Justine Hilda ANP-BC Unavailable Unavailable Todd, Justine Hilda ANP-BC Unavailable Unavailable Todd, Justine Hilda ANP-BC Unavailable Unavailable Todd, Justine Hilda ANP-BC Unavailable Unavailable Todd, Justine Hilda ANP-BC Unavailable Unavailable Todd, Justine Hilda ANP-BC Unavailable Unavailable Todd, Justine Hilda ANP-BC Unavailable Unavailable Todd, Justine Hilda ANP-BC Unavailable Unavailable Todd, Justine Hilda ANP-BC Unavailable Unavailable Todd, Justine Hilda ANP-BC Unavailable Unavailable Todd, Justine Hilda ANP-BC Unavailable Unavailable Todd, Justine Hilda ANP-BC Unavailable Unavailable Todd, Justine Hilda ANP-BC Unavailable Unavailable Todd, Justine Hilda ANP-BC Unavailable Unavailable Todd, Justine Hilda ANP-BC Unavailable Unavailable Todd, Justine Hilda ANP-BC Unavailable Unavailable Todd, Justine Hilda ANP-BC Unavailable Unavailable Todd, Justine Hilda ANP-BC Unavailable Unavailable Todd, Justine Hilda ANP-BC Unavailable Unavailable Todd, Justine Hilda ANP-BC Unavailable Unavailable Todd, Justine Hilda ANP-BC Unavailable Unavailable Todd, Justine Hilda ANP-BC Unavailable Unavailable Todd, Justine Hilda ANP-BC Unavailable Unavailable Todd, Justine Hilda ANP-BC Unavailable Unavailable Todd, Justine Hilda ANP-BC Unavailable Unavailable Todd, Justine Hilda ANP-BC Unavailable Unavailable Todd, Justine Hilda ANP-BC Unavailable Unavailable Otdd, Justine Hilda ANP-BC Unavailable Unavailable Todd, Justine Hilda ANP-BC Unavailable Unavailable Todd, Justine Hilda ANP-BC Unavailable Unavailable Todd, Justine Hilda ANP-BC Unavailable Unavailable Todd, Justine Hilda ANP-BC Unavailable Unavailable Todd, Justine Hilda ANP-BC Unavailable Unavailable Re-disclosure Warning The records that you are about to access may contain information from federally-assisted alcohol or drug abuse programs. If such information is present, then the following federally mandated warning applies: This information has been disclosed to you from records protected by federal confidentiality rules (42 CFR part 2). The federal rules prohibit you from making any further disclosure of this information unless further disclosure is expressly permitted by the written consent of the person to whom it pertains or as otherwise permitted by 42 CFR part 2. A general authorization for the release of medical or other information is NOT sufficient for this purpose. The Federal rules restrict any use of the information to criminally investigate or prosecute any alcohol or drug abuse patient.The records that you are about to access may contain highly sensitive health information, the redisclosure of which is protected by Article 27-F of the [facility] Public Health law. If you continue you may have access to information: Regarding HIV / AIDS; Provided by facilities licensed or operated by the [facility] Office of Mental Health; or Provided by the [facility] Office for People With Developmental Disabilities. If such information is present, then the following [facility] mandated warning applies: This information has been disclosed to you from confidential records which are protected by state law. State law prohibits you from making any further disclosure of this information without the specific written consent of the person to whom it pertains, or as otherwise permitted by law. Any unauthorized further disclosure in violation of state law may result in a fine or snf sentence or both. A general authorization for the release of medical or other information is NOT sufficient authorization for further disc losure. Allergies and Adverse Reactions Type Description Substance Reaction Status Data Source(s ) No Known Drug Allergies No Known Drug Allergies [facility] Family History Family Member Name Family Member Gender Family Member Status Date o f Status Description Data Source(s) Unknown Unknown Problem MEDENT ([facility]) Unknown Male Problem MEDENT ([facility]) Unknown Unknown Problem MEDENT ([facility] mother Encounters Encounter Providers Location Date Indications Data Source(s ) ( ESTOB) [facility] [address] [place] [address] 08/05/2020 12:00:00 AM EST eCW1 ([facility]) ( ESTOB) [facility] [address] [place] [address] 07/30/2020 12:00:00 AM EST eCW1 ([facility]) ( ESTOB) [facility] [address] [place] [address] 07/02/2020 12:00:00 AM EST eCW1 ([facility]) Unknown [address] [facility] [phone] 06/18/2020 12:00:00 AM EST eCW1 ([facility]) ( ESTOB) [facility] [address] [place] [address] 06/18/2020 12:00:00 AM EST eCW1 ([facility]) ( ESTOB) [facility] [address] [place] [address] 06/04/2020 12:00:00 AM EST eCW1 ([facility]) ( ESTOB) [facility] [address] [place] [address] 05/07/2020 12:00:00 AM EDT eCW1 ([facility]) ( ESTOB) [facility] Est OB [address] [place] [address] 02/12/2020 12:00:00 AM EDT eCW1 ([facility]) [facility] [address] [place] [phone] 11/02/2019 12:00:00 AM EDT eCW1 ([facility]) [facility] [address] [place] [phone] 10/24/2019 12:00:00 AM EDT eCW1 ([facility]) [facility] [address] [place] [phone] 10/23/2019 12:00:00 AM EDT eCW1 ([facility]) [facility] [address] [place] [phone] 10/22/2019 12:00:00 AM EDT eCW1 ([facility]) Outpatient Attender: Hilda BAKER 08/26 10:23:00 AM EST - 09/19/2019 10:23:00 AM EST [facility] Outpatient Attender: Hilda [facility] 08/26 09:20:00 AM EST [facility] ([facility]) Immunizations Vaccine Date Status Description Data Source(s) Tdap 07/02/2020 09:42:00 AM EST completed e CW1 ([facility]) Tdap 07/02/2020 09:42:00 AM EST completed e CW1 ([facility]) Tdap 07/02/2020 09:42:00 AM EST completed e CW1 ([facility]) RHo (D) Immune Globulin 300mcg/1.5mL (RhoGAM) 06/18/2020 11: 47:00 AM EST completed eCW1 ([facility]) RHo (D) Immune Globulin 300mcg/1.5mL (RhoGAM) 06/18/2020 11: 47:00 AM EST completed eCW1 ([facility]) RHo (D) Immune Globulin 300mcg/1.5mL (RhoGAM) 06/18/2020 11: 47:00 AM EST completed eCW1 ([facility]) RHo (D) Immune Globulin 300mcg/1.5mL (RhoGAM) 06/18/2020 11: 47:00 AM EST completed eCW1 ([facility]) RHo (D) Immune Globulin 300mcg/1.5mL (RhoGAM) 06/18/2020 11: 47:00 AM EST completed eCW1 ([facility]) RHo (D) Immune Globulin 300mcg/1.5mL (RhoGAM) 06/18/2020 11: 47:00 AM EST completed eCW1 ([facility]) Medications Medication Brand Name Start Date Product Form Dose Route Admi nistrative Instructions Pharmacy Instructions Status Indications Reaction Description Data Source(s) 137 mcg 06/18/2020 12:00:00 AM EST tablet 30 TAKE ONE TABLET BY MOUTH EVERY MORNING ON AN EMPTY STOMACH TAKE ONE TABLET BY MOUTH EVERY MORNING O N AN EMPTY STOMACH SOLD: 08/16/2020 [facility] Levothyroxine Sodium 0.137 MG Oral Tablet [Synthroid] Synthroid 137 MCG Synthroid 137 MCG 06/18/2020 12:00:00 AM EST active Synthroid 137 MCG eCW1 ([facility]) 137 mcg 06/18/2020 12:00:00 AM EST tablet 30 TAKE ONE TABLET BY MOUTH EVERY MORNING ON AN EMPTY STOMACH TAKE ONE TABLET BY MOUTH EVERY MORNING O N AN EMPTY STOMACH SOLD: 06/18/2020 [facility] Levothyroxine Sodium 0.137 MG Oral Tablet [Synthroid] Synthroid 137 MCG Synthroid 137 MCG 06/18/2020 12:00:00 AM EST active Synthroid 137 MCG eCW1 ([facility]) Levothyroxine Sodium 0.137 MG Oral Tablet [Synthroid] Synthroid 137 MCG Synthroid 137 MCG 06/18/2020 12:00:00 AM EST active Synthroid 137 MCG eCW1 ([facility]) Levothyroxine Sodium 0.137 MG Oral Tablet [Synthroid] Synthroid 137 MCG Synthroid 137 MCG 06/18/2020 12:00:00 AM EST active Synthroid 137 MCG eCW1 ([facility]) 137 mcg 06/18/2020 12:00:00 AM EST tablet 30 TAKE ONE TABLET BY MOUTH EVERY MORNING ON AN EMPTY STOMACH TAKE ONE TABLET BY MOUTH EVERY MORNING O N AN EMPTY STOMACH SOLD: 07/15/2020 [facility] Levothyroxine Sodium 0.137 MG Oral Tablet [Synthroid] Synthroid 137 MCG Synthroid 137 MCG 06/18/2020 12:00:00 AM EST active Synthroid 137 MCG eCW1 ([facility]) Levothyroxine Sodium 0.137 MG Oral Tablet [Synthroid] Synthroid 137 MCG Synthroid 137 MCG 06/18/2020 12:00:00 AM EST active Synthroid 137 MCG eCW1 ([facility]) 125 mcg 04/17/2020 12:00:00 AM EDT tablet 90 TAKE ONE TABLET BY MOUTH EVERY DAY TAKE ONE TABLET BY MOUTH EVERY DAY SOLD: 04/19/2020 [facility] 125 mcg 06/25/2019 12:00:00 AM EST tablet 90 TAKE ONE TABLET BY MOUTH EVERY DAY TAKE ONE TABLET BY MOUTH EVERY DAY SOLD: 10/09/2019 [facility] 125 mcg 06/25/2019 12:00:00 AM EST tablet 90 TAKE ONE TABLET BY MOUTH EVERY DAY TAKE ONE TABLET BY MOUTH EVERY DAY SOLD: 01/16/2020 [facility] Insurance Providers Payer name Policy type / Coverage type Policy ID Covered democrat ID Covered democrat's relationship to billings Policy Billings Plan Information [facility] [id number] SP [id number] [place] [id number] SP [id number] [facility] PLANO [id number] SP [id number] [facility]) O [id number] S [id number] [facility] [id number] SP [id number] MEDICAID [id number] SP [id number] [facility] [id number] SP [id number] [facility] [id number] SP [id number] [facility] COMMUNTY PLAN [id number] SELF PAY ONLY SP UMR CO [id number] 18 [id number] Umr Commercial [id number] Self [id number] [facility] [id number] SP [id number] [facility] [id number] 18 [id number] [employer] BC [id number] 01 [id number] [facility] [id number] SP [id number] [employer] Commercial [id number] Family Dependent [id number] [employer] Commercial [id number] Self [id number] [employer] Commercial [id number] Self [id number] [employer] Commercial [id number] Self [id number] [employer] Commercial [id number] Self [id number] [employer] Commercial [id number] Self [id number] [employer] Commercial [id number] Self [id number] [employer] Commercial [id number] Self [id number] [employer] [id number] SP [id number] [employer] [id number] Self [id number] Problems, Conditions, and Diagnoses Code Display Name Description Problem Type Effective Dates Data Source(s) E03.9 [id number] Hypothyroid Problem 06/18/2020 12:00:[address] eCW1 ([facility]) Z34.80 care Supervision of other normal P carrielem 02/07/2020 12:00:00 AM EDT eCW1 ([facility]) Surgeries/Procedures Procedure Description Date Indications Data Source(s) Immunization: Boostrix 0.5mL IM (TDAP) 07/02/2020 12:0 0:00 AM EST eCW1 ([facility]) Injection: RhoGAM 300mcg/1.5mL IM (Rho [D] Immune Globulin H uman) 06/18/2020 12:00:00 AM EST eCW1 ([facility]) INTMD RPR S/A/T/EXT 2.5 CM/< 10/24/2019 12:00:00 AM ED T eCW1 ([facility]) EXC TR-EXT B9 MARRY 0.6-1 CM 10/24/2019 12:00:00 AM EDT eCW1 ([facility]) TeleMedicine New Pt. Level 3 10/23/2019 12:00:00 AM ED T eCW1 ([facility]) Results ID Date Data Source GROUP B STREP CULTURE 08/05/2020 12:00:00 AM EST eCW1 ([facility]) Name Value Range Interpretation Code Description Data Marva rce(s) Supporting Document(s) GROUP B STREP CULTURE eCW1 ([facility]) ID Date Data Source FREE T4 & TSH PANEL 06/18/2020 12:00:00 AM EST eCW1 ([facility]) Name Value Range Interpretation Code Description Data Marva rce(s) Supporting Document(s) 2.500 0.358-3.740 eCW1 ([facility]) 1.00 0.76-1.46 eCW1 ([facility]) ID Date Data Source RHOGAM 05/28/2020 12:00:00 AM EST eCW1 ([facility]) Name Value Range Interpretation Code Description Data Marva rce(s) Supporting Document(s) TRANSFUSED PRODUCT: RHOGAM CO UNT: 1 RHOGAM eCW1 ([facility]) ID Date Data Source Glucose Challenge Test 1 Hour 05/28/2020 12:00:00 AM EST eCW 1 ([facility]) Name Value Range Interpretation Code Description Data Marva rce(s) Supporting Document(s) 109 LESS THAN 140 GLUCOSE CHALLENGE TEST 1 HOUR eCW1 ([facility]) ID Date Data Source CBC - Complete Blood Count 05/28/2020 12:00:00 AM EST eCW1 ( [facility]) Name Value Range Interpretation Code Description Data Marva rce(s) Supporting Document(s) 9.8 4.0-10.0 WHITE BLOOD COUNT eCW1 ([facility]) 3.64 4.00-5.40 RED BLOOD COUNT eCW1 ([facility]) 33.8 36.0-47.0 HEMATOCRIT eCW1 ([facility]) 11.0 12.0-15.5 HEMOGLOBIN eCW1 ([facility]) 30.2 27.0-33.0 MEAN CORPUSCULAR HEMOGLOB IN eCW1 ([facility]) 92.9 80.0-96.0 MEAN CORPUSCULAR VOLUME e CW1 ([facility]) 12.6 11.5-14.5 RED CELL DISTRIBUTION WID TH eCW1 ([facility]) 32.5 32.0-36.5 MEAN CORPUSCULAR HGB CONC eCW1 ([facility]) 229 150-450 PLATELET COUNT, AUTOMATED eCW1 ([facility]) ID Date Data Source HBSAG 05/07/2020 10:23:46 AM EDT eCW1 ([facility]) Name Value Range Interpretation Code Description Data Marva rce(s) Supporting Document(s) NEGATIVE eCW1 ([facility]) ID Date Data Source HEPATITIS C ANTIBODY INDEX 05/07/2020 10:23:42 AM EDT eCW1 ( [facility]) Name Value Range Interpretation Code Description Data Marva rce(s) Supporting Document(s) TNP eCW1 ([facility]) ID Date Data Source RUBELLA IMMUNE STATUS IgG 05/07/2020 10:23:39 AM EDT eCW1 ([facility]) Name Value Range Interpretation Code Description Data Marva rce(s) Supporting Document(s) TNP eCW1 ([facility]) ID Date Data Source SYPHILIS ANTIBODY (RPR SCREEN) 05/07/2020 10:23:35 AM EDT eC W1 ([facility]) Name Value Range Interpretation Code Description Data Marva rce(s) Supporting Document(s) TNP eCW1 ([facility]) ID Date Data Source [id number] 05/07/2020 10:23:30 AM EDT eCW1 ([facility]) Name Value Range Interpretation Code Description Data Marva rce(s) Supporting Document(s) eCW1 ([facility]) ID Date Data Source Type and Screen Prenatal1 05/02/2020 11:04:31 AM EDT eCW1 ([facility]) Name Value Range Interpretation Code Description Data Marva rce(s) Supporting Document(s) NEGATIVE eCW1 ([facility]) ID Date Data Source CHLAMYDIA & GC DNA AMPLIFICAT 04/30/2020 03:58:57 AM EDT eCW 1 ([facility]) Name Value Range Interpretation Code Description Data Marva rce(s) Supporting Document(s) Chlamydia trachomatis rRNA [Presence] in Unspecified specimen by Probe and target amplification method NEGATIVE W1 ([facility]) ID Date Data Source URINE CULTURE 04/30/2020 03:58:52 AM EDT eCW1 ([facility]) Name Value Range Interpretation Code Description Data Marva rce(s) Supporting Document(s) eCW1 ([facility]) ID Date Data Source [id number] 09/13/2019 11:56:00 AM EST MEDENT ([facility]) Name Value Range Interpretation Code Description Data Marva rce(s) Supporting Document(s) Thyrotropin [Units/volume] in Serum or Plasma 1.300 uIU/ML 0. 358-3.740 Normal (applies to non-numeric results) MEDENT ([facility]) Thyroxine (T4) [Mass/volume] in Serum or Plasma 10.1 ug/dL 4.5-12.0 Normal (applies to non-numeric results) MEDENT ([facility]) Triiodothyronine (T3) Free [Mass/volume] in Serum or Plasma 2.5 pg/mL 2.2-4.0 Normal (applies to non-numeric results) MEDENT ([facility]) Thyroperoxidase Ab [Units/volume] in Serum or Plasma 38.1 U/ML Normal (applies to non-numeric results) MEDENT ([facility]) Thyroxine (T4) free [Mass/volume] in Serum or Plasma 1.07 ng/dL 0.76-1.46 Normal (applies to non-numeric results) MED[facility] ([facility]) ID Date Data Source [id number] 09/13/2019 11:56:00 AM EST MEDENT ([facility]) Name Value Range Interpretation Code Description Data Marva rce(s) Supporting Document(s) HDL Cholesterol 90 mg/dL Normal (applies to non-numeric results) MEDENT ([facility]) Triglycerides Level 44 mg/dL Normal (applies to non-nume varsha results) MED[facility] ([facility]) Cholesterol Level 182 mg/dL Normal (applies to non-numeri c results) MED[facility] ([facility]) Cholesterol Risk Ratio 2.022 Normal (applies to non-n umeric results) [facility] ([facility]) Non-HDL-C 92 mg/dL Normal (applies to non-numeric resul ts) MED[facility] ([facility]) LDL Cholesterol 83 mg/dL Normal (applies to non-numeric results) [facility]) ID Date Data Source [id number] 09/13/2019 11:56:00 AM EST MEDENT ([facility]) Name Value Range Interpretation Code Description Data Marva rce(s) Supporting Document(s) Blood Urea Nitrogen 14 mg/dL 7-18 Normal (applies to non-nume varsha results) MEDENT ([facility]) Glucose, Fasting 75 mg/dL 70-100 Normal (applies to non-numeric results) [facility] ([facility]) Sodium Level 141 meq/L 136-145 Normal (applies to non-numeric res ults) [facility] ([facility]) Creatinine For GFR 0.66 mg/dL 0.55-1.30 Normal (applies to non -numeric results) [facility] ([facility]) Glomerular Filtration Rate > 60.0 Normal (applies to n on-numeric results) [facility] ([facility]) <content>Units are mL/min/1.73 m2</content>
<content></content>
<content>Chronic Kidney Disease Staging per NKF:</content>
<content></content>
<content>Stage I & II GFR >=60 Normal to Mildly Decreased</content>
<content>Stage III GFR 30- 59 Moderately Decreased</content>
<content>Stage IV GFR 15-29 Severely Decreased</content>
<content>Stage V GFR <15 Very Little GFR Left</content>
<content>ESRD GFR <15 on EQUIPMENT MAINTENANCE SUPERINTENDENT</content>
<content></content> Carbon Dioxide Level 28 meq/L 21-32 Normal (applies to non-num ida results) MED[facility] ([facility]) Chloride Level 108 meq/L 98-107 Above high normal [facility] ([facility]) Potassium Serum 4.3 meq/L 3.5-5.1 Normal (applies to non-numeric results) [facility] ([facility]) Anion Gap 5 meq/L 8-16 Below low normal [facility] ( [facility]) Ast/Sgot 16 U/L 7-37 Normal (applies to non-numeric resul ts) [facility] ([facility]) Calcium Level 8.9 mg/dL 8.5-10.1 Normal (applies to non-numeric re sults) [facility] ([facility]) Alkaline Phosphatase 141 U/L 45-117 Above high normal [facility] ([facility]) Alt/SGPT 23 U/L 12-78 Normal (applies to non-numeric resul ts) [facility] ([facility]) Bilirubin,Total 0.2 mg/dL 0.2-1.0 Normal (applies to non-numeric results) [facility] ([facility]) Albumin/Globulin Ratio 1.29 1.00-1.93 Normal (applies to non-numeric results) [facility] ([facility]) Total Protein 7.1 GM/DL 6.4-8.2 Normal (applies to non-numeric re sults) [facility] ([facility]) Albumin 4.0 GM/DL 3.2-5.2 Normal (applies to non-numeric resul ts) [facility] ([facility]) ID Date Data Source [id number] 09/13/2019 11:56:00 AM EST [facility] ([facility]) Name Value Range Interpretation Code Description Data Marva rce(s) Supporting Document(s) Hemoglobin A1c 5.6 % Normal (applies to non-numeric r esults) [facility] ([facility]) REFERENCE RANGES: 4.5-5.6% NORMAL 5.7-6.4% SUGGESTS IMPAIRED GLUCOSE META BOLISM >= 6.5% ABNORMAL Estimated Average Glucose 114 mg/dL 60-110 Above high normal [facility] ([facility]) ID Date Data Source [id number] 09/13/2019 11:56:00 AM EST [facility] ([facility]) Name Value Range Interpretation Code Description Data Marva rce(s) Supporting Document(s) White Blood Count 6.1 10 4.0-10.0 Normal (applies to non-numeri c results) [facility] ([facility]) Hemoglobin 13.5 g/dL 12.0-15.5 Normal (applies to non-numeric resul ts) [facility] ([facility]) Hematocrit 41.4 % 36.0-47.0 Normal (applies to non-numeric resul ts) [facility] ([facility]) Red Blood Count 4.60 10 4.00-5.40 Normal (applies to non-numeric results) [facility] ([facility]) Mean Corpuscular Hemoglobin 29.3 pg 27.0-33.0 Norm al (applies to non-numeric results) [facility] ([facility]) Mean Corpuscular HGB Conc 32.6 g/dL 32.0-36.5 Normal (applies to non-numeric results) [facility] ([facility]) Mean Corpuscular Volume 90.0 fl 80.0-96.0 Normal ( applies to non-numeric results) [facility] ([facility]) Neutrophils % 65.7 % 36.0-66.0 Normal (applies to non-numeric re sults) [facility] ([facility]) Red Cell Distribution Width 12.1 % 11.5-14.5 Norm al (applies to non-numeric results) [facility] ([facility]) Platelet Count, Automated 262 10 150-450 Normal (applies to non-numeric results) [facility] ([facility]) [place] % 6.3 % 0.0-5.0 Above high normal [facility] ([facility]) Eos % 2.5 % 0.0-3.0 Normal (applies to non-numeric resul ts) [facility] ([facility]) Lymph % 24.5 % 24.0-44.0 Normal (applies to non-numeric resul ts) [facility] ([facility]) Immature Granulocyte % 0.2 % 0-3.0 Normal (applies to non-n umeric results) [facility] ([facility]) Nucleated Red Blood Cell % 0.0 % 0-0 Normal (applies to n on-numeric results) [facility] ([facility]) Baso % 0.8 % 0.0-1.0 Normal (applies to non-numeric resul ts) [facility] ([facility]) Lymph # 1.5 10 1.5-5.0 Normal (applies to non-numeric resul ts) [facility] ([facility]) [place] # 0.4 10 0.0-0.8 Normal (applies to non-numeric resul ts) [facility] ([facility]) Neutrophils # 4.0 10 1.5-8.5 Normal (applies to non-numeric re sults) [facility] ([facility]) Baso # 0.1 10 0.0-0.2 Normal (applies to non-numeric resul ts) [facility] ([facility]) Eos # 0.2 10 0.0-0.5 Normal (applies to non-numeric resul ts) [facility] ([facility]) Procedure Social History Code Duration Value Status Description Data Source(s ) Smoking 08/14/2020 12:00:00 AM EST Never Smoker completed Never S moker eCW1 ([facility]) Smoking 07/28/2020 12:00:00 AM EST Never Smoker completed Never S moker eCW1 ([facility]) Smoking 06/30/2020 12:00:00 AM EST Never Smoker completed Never S moker eCW1 ([facility]) Smoking 06/16/2020 12:00:00 AM EST Never Smoker completed Never S moker eCW1 ([facility]) Smoking 06/16/2020 12:00:00 AM EST Never Smoker completed Never S moker eCW1 ([facility]) Smoking 06/16/2020 12:00:00 AM EST Never Smoker completed Never S moker eCW1 ([facility]) Smoking 06/16/2020 12:00:00 AM EST Never Smoker completed Never S moker eCW1 ([facility]) Smoking 05/30/2020 12:00:00 AM EST Never Smoker completed Never S moker eCW1 ([facility]) Vital Signs ID Date Data Source UNK Name Value Range Interpretation Code Description Data Source(s) Diastolic blood pressure 76 mm[Hg] 76 mm[Hg] eCW1 ([facility]) Systolic blood pressure 114 mm[Hg] 114 mm[Hg] e CW1 ([facility]) Body mass index (BMI) [Ratio] 35.025 kg/m2 35.0 25 kg/m2 eCW1 ([facility]) Body height 66 [in_i] 66 [in_i] eCW1 ([facility]) Body weight 217 [lb_av] 217 [lb_av] eCW1 ([facility]) Diastolic blood pressure 70 mm[Hg] 70 mm[Hg] eCW1 ([facility]) Systolic blood pressure 120 mm[Hg] 120 mm[Hg] e CW1 ([facility]) Body weight 214 [lb_av] 214 [lb_av] eCW1 ([facility]) Diastolic blood pressure 64 mm[Hg] 64 mm[Hg] eCW1 ([facility]) Systolic blood pressure 110 mm[Hg] 110 mm[Hg] e CW1 ([facility]) Body mass index (BMI) [Ratio] 33.346 kg/m2 33.3 46 kg/m2 eCW1 ([facility]) Body height 66 [in_i] 66 [in_i] eCW1 ([facility]) Body weight 206.6 [lb_av] 206.6 [lb_av] eCW1 ([facility]) Diastolic blood pressure 62 mm[Hg] 62 mm[Hg] eCW1 ([facility]) Systolic blood pressure 122 mm[Hg] 122 mm[Hg] e CW1 ([facility]) Body mass index (BMI) [Ratio] 33.088 kg/m2 33.0 88 kg/m2 eCW1 ([facility]) Body height 66 [in_i] 66 [in_i] eCW1 ([facility]) Body weight 205 [lb_av] 205 [lb_av] eCW1 ([facility]) Diastolic blood pressure 58 mm[Hg] 58 mm[Hg] eCW1 ([facility]) Systolic blood pressure 118 mm[Hg] 118 mm[Hg] e CW1 ([facility]) Body mass index (BMI) [Ratio] 32.119 kg/m2 32.1 19 kg/m2 eCW1 ([facility]) Body height 66 [in_i] 66 [in_i] eCW1 ([facility]) Body weight 199 [lb_av] 199 [lb_av] eCW1 ([facility]) Diastolic blood pressure 70 mm[Hg] 70 mm[Hg] eCW1 ([facility]) Systolic blood pressure 116 mm[Hg] 116 mm[Hg] e CW1 ([facility]) Body mass index (BMI) [Ratio] 30.925 kg/m2 30.9 25 kg/m2 eCW1 ([facility]) Body height 66 [in_i] 66 [in_i] eCW1 ([facility]) Body weight 191.6 [lb_av] 191.6 [lb_av] eCW1 ([facility]) Diastolic blood pressure 58 mm[Hg] 58 mm[Hg] eCW1 ([facility]) Systolic blood pressure 112 mm[Hg] 112 mm[Hg] e CW1 ([facility]) Body mass index (BMI) [Ratio] 27.277 kg/m2 27.2 77 kg/m2 eCW1 ([facility]) Body height 66 [in_i] 66 [in_i] eCW1 ([facility]) Body weight 169 [lb_av] 169 [lb_av] eCW1 ([facility]) Diastolic blood pressure 76 mm[Hg] 76 mm[Hg] eCW1 ([facility]) Systolic blood pressure 124 mm[Hg] 124 mm[Hg] e CW1 ([facility]) Body mass index (BMI) [Ratio] 28.08 kg/m2 28.08 kg/m2 W1 ([facility]) Body height [in_us] eCW1 ([facility]) Body weight Measured 174 [lb_av] 174 [lb_av] eC W1 ([facility]) Body surface area 1.89 m2 1.89 m2 [facility] ([facility]) Body mass index (BMI) [Ratio] 28.2 kg/m2 28.2 k g/m2 [facility] ([facility]) Body height 66 [in_i] 66 [in_i] [facility] ([facility]) 5'6" Body weight 79.380 kg 79.380 kg [facility] ([facility]) Body weight 175.00 [lb_av] 175.00 [lb_av] [facility] ([facility]) Oxygen saturation in Arterial blood by Pulse oximetry 96 % 96 % [facility] ([facility]) Respiratory rate 16 /min 16 /min [facility] ( [facility]) Body temperature 97.9 [degF] 97.9 [degF] [facility] ([facility]) Heart rate 76 /min 76 /min [facility] ([facility]) Diastolic blood pressure 62 mm[Hg] 62 mm[Hg] [facility] ([facility]) Systolic blood pressure 118 mm[Hg] 118 mm[Hg] [facility] ([facility]) Patient Treatment Plan of Care Planned Activity Planned Date Details Description Data Source (s) Levothyroxine Sodium 0.137 MG Oral Tablet [Synthroid] 06/18/2020 12:00:00 AM EST eCW1 ([facility]) Levothyroxine Sodium 0.137 MG Oral Tablet [Synthroid] 06/18/2020 12:00:00 AM EST eCW1 ([facility]) Levothyroxine Sodium 0.137 MG Oral Tablet [Synthroid] 06/18/2020 12:00:00 AM EST eCW1 ([facility])
--- OUTSIDE RECORDS SUMMARY | 2020-08-29 10:50 | CCD ---
Author Author Formerly [facility] Syst ems Organization [facility] Syst ems Address Unknown Phone Unavailable Care Team Providers Care Medical Illustrator Name Role Phone Anabelle Wilhelm Unavailable PROBLEMS Type Condition ICD9-CM Code [id number] Code Onset Dates Condition S tatus SNOMED Code Notes Problem Supervision of other normal Z34.80 Ac tive 727123631 Problem Hypothyroid E03.9 Active 17227912 ALLERGIES No Known Allergies ENCOUNTERS from 1982 to 2020-06-24 Encounter Location Date Provider Diagnosis [facility] [address] [place] [phone] Apr, Anabelle Wilhelm 23 weeks gestation o f Z3A.23 ; Supervision of elderly multigravida in second trimester O09.522 ; Endocrine, nutritional and metabolic diseases complicating , second trimester O99.282 and Hypothyroid E03.9 IMMUNIZATIONS Vaccine Route Administration Date Status RHo (D) Immune Globulin 300mcg/1.5mL (RhoGAM) IM Intramuscular N 2019 Administered SOCIAL HISTORY Tobacco Use: Social History Observation Description Date Details (start date - stop date) Never Smoker Sex Assigned At : Social History Observation Description Sex Assigned At Unknown Tobacco Use: Question Answer Notes Are you a: never smoker REASON FOR REFERRAL No Information VITAL SIGNS Weight 191.6 lbs Apr, Height 66 in Apr, BMI 30.925 kg/m2 Apr, Blood pressure systolic 116 mm Hg Apr, Blood pressure diastolic 70 mm Hg Apr, MEDICATIONS Medication SIG (Take, Route, Frequency, Duration) [...] a day Active PROCEDURES No Information RESULTS Component Value Reference Range CBC - Complete Blood Count Reviewed date:05/28/2020 15:17:20 Interpretation: Performing Lab:[facility] [address] [facility] [address] , ,[place] [address] WHITE BLOOD COUNT 9.8 4.0-10.0 RED BLOOD COUNT 3.64 4.00-5.40 HEMOGLOBIN 11.0 12.0-15.5 HEMATOCRIT 33.8 36.0-47.0 MEAN CORPUSCULAR VOLUME 92.9 80.0-96.0 MEAN CORPUSCULAR HEMOGLOBIN 30.2 27.0-33.0 MEAN CORPUSCULAR HGB CONC 32.5 32.0-36.5 RED CELL DISTRIBUTION WIDTH 12.6 11.5-14.5 PLATELET COUNT, AUTOMATED 229 150-450 Glucose Challenge Test 1 Hour Reviewed date:05/28/2020 15:17:35 Interpretation: Performing Lab:[facility] [address] [facility] [address] , ,[place] [address] GLUCOSE CHALLENGE TEST 1 HOUR 109 LESS THAN 140 RHOGAM Reviewed date:05/30/2020 08:47:01 Interpretation: Performing Lab:[facility] [place], [place] [address] RHOGAM TRANSFUSED PRODUCT: RHOGAM COUNT: 1 REASON FOR VISIT 4 WK PN MEDICAL (GENERAL) HISTORY Type Description Date Medical History Hypothyroidism Surgical History Pilonidal cyst removal Hospitalization History childbirth Goals Section No Information Health Concerns No Information MEDICAL EQUIPMENT No Information MENTAL STATUS No Information FUNCTIONAL STATUS No Information ASSESSMENTS Encounter Date Diagnosis Assessment Notes Treatment Notes Treatm ent Clinical Notes Apr, 23 weeks gestation of (ICD-10 - Z3A.23 ) Apr, Supervision of elderly multi in second trimester (ICD-10 - O09.522) Apr, Endocrine, nutritional and m etabolic diseases complicating , second trimester (ICD-10 - O99.282) 14 Apr, 2020 Hypothyroid (ICD-10 - E03.9) PLAN OF TREATMENT Medication Medication Name Sig Start Date Stop Date Synthroid 137 MCG 1 tablet in the morning on a n empty stomach Orally Once a day for 30 day(s) May, Treatment Notes Test Name Order Date Type and Screen (D Rh Antibody Screen) 2020-06-24 Next Appt Details 4 Weeks Reason:PN Provider Name:Anabelle D Choco, 2020-06 09:00:00 AM, [address] [place], [phone], Follow Up:4 WeeksPN Insurance Providers Payer Name Payer Address Payer Phone Insured Name Patient Relati onship to Insured Coverage Start Date Coverage End Date COUNTS INCLUDE 234 BEDS AT [facility] COMM[facility] PLAN [facility] [address] [facility] [phone] FARIDA JACOBSON self
--- OUTSIDE RECORDS SUMMARY | 2020-08-29 10:50 | CCD ---
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 Name Role Phone Chris Zayas Unavailable PROBLEMS Type Condition ICD9-CM Code [id number] Code Onset Dates Condition S tatus SNOMED Code Notes Problem Supervision of other normal Z34.80 Ac tive 528481927 Problem Hypothyroid E03.9 Active 37506450 ALLERGIES No Known Allergies ENCOUNTERS from 1982 to 2020-06-25 Encounter Location Date Provider Diagnosis [facility] [address] [place] [phone] May, Chris Zayas Endocrine, nutrition al and metabolic diseases complicating , third trimester O99.283 and Hypothyroidism affecting O99.280 IMMUNIZATIONS Vaccine Route Administration Date Status RHo (D) Immune Globulin 300mcg/1.5mL (RhoGAM) IM Intramuscular N 2019 Administered SOCIAL HISTORY Tobacco Use: Social History Observation Description Date Details (start date - stop date) Never Smoker Sex Assigned At : Social History Observation Description Sex Assigned At Unknown Tobacco Use: Question Answer Notes Are you a: never smoker REASON FOR REFERRAL No Information VITAL SIGNS No information MEDICATIONS Medication SIG (Take, Route, Frequency, Duration) [...] Information RESULTS No Results REASON FOR VISIT No Information MEDICAL (GENERAL) HISTORY Type Description Date Medical History Hypothyroidism Surgical History Pilonidal cyst removal Hospitalization History childbirth Goals Section No Information Health Concerns No Information MEDICAL EQUIPMENT No Information MENTAL STATUS No Information FUNCTIONAL STATUS No Information ASSESSMENTS Encounter Date Diagnosis Assessment Notes Treatment Notes Treatm ent Clinical Notes May, Endocrine, nutritional and m etabolic diseases complicating , third trimester (ICD-10 - O99.283) May, Hypothyroidism affecting (ICD-10 - O99 .280) PLAN OF TREATMENT Medication Medication Name Sig Start Date Stop Date Synthroid 137 MCG 1 tablet in the morning on a n empty stomach Orally Once a day for 30 day(s) May, Next Appt Details Provider Name:Anabelle Fournier Choco, 2020-06 09:00:00 AM, [address] [place], [phone], Insurance Providers Payer Name Payer Address Payer Phone Insured Name Patient Relati onship to Insured Coverage Start Date Coverage End Date [facility] COMMUN[facility] PLAN [facility] [address] [facility] [phone] FARIDA JACOBSON self
[2020-08-29] MEDS ORDERED: LACTATED RINGER'S 1000 ML IV STA (11:07)
[2020-08-29] MEDS ORDERED: LR 1,000 ML IV SCH (11:31)
[2020-08-29 11:34] LABS: HEMATOCRIT 35.3 % (36.0-47.0); HEMOGLOBIN 11.5 g/dl (12.0-15.5); MEAN CORPUSCULAR HEMOGLOBIN 28.2 pg (27.0-33.0); MEAN CORPUSCULAR HGB CONC 32.6 g/dl (32.0-36.5); MEAN CORPUSCULAR VOLUME 86.5 fl (80.0-96.0); PLATELET COUNT, AUTOMATED 234 10^3/uL (150-450); RED BLOOD COUNT 4.08 10^6/uL (4.00-5.40); WHITE BLOOD COUNT 8.3 10^3/uL (4.0-10.0)
[2020-08-29] MEDS ORDERED: OXYTOCIN DRIP 30 UNITS in IV 1 EA IV SCH (11:45)
--- NOTE | 2020-08-29 11:47 | HPEPDOC ---
Obstetrical History & Physical General Date of Admission Aug 29, 2020 at 10:45 History of Present Illness Chief Complaint: Induction of labor Information Provided By: Patient Age: 40 : 2 Term: 1 Pre-term: 0 Abortions: 0 Livin Care Care: Good Care Dating Final EDC: Sep 03, 2020 Final EDC by: 1st trimester (US) EGA at Admission: 39 (+2) Antepartum Course Pre- weight (lbs.): 169 Admission Weight (lbs.): 221 Past Medical History Past Obstetrical History : Past Obstetrical History: Primgravida (2019) Type of Delivery: Spontaneous Vaginal Del. Sex of Infant: Male (8#13) Complications: No CATERING MANAGER History: No pertinent history Past Medical History Medical History hypothyroid, currently on synthroid 137mcg Surgical History: Other (pilonidal cystectomy) Family History Significant Family History: Cancer Social History Marital Status: Family situation: Spouse/partner home Psychosocial History: No pertinent psych hx * Smoker: non-smoker Alcohol: Denies Drugs: denies Abuse Violence Screening Have you been hit/kicked/slapp: No Have you been sexually assault: No Imunizations Tdap status: current Allergies Coded Allergies: amoxicillin (Unverified Allergy, Unknown, 01/19/19) Pt does not recall reaction, but states will not take clavulanic acid (Unverified Allergy, Unknown, 01/19/19) Pt does not recall reaction, but states will not take Medications Scheduled Levothyroxine Sodium (Levothyroxine Sodium) 125 Mcg Tablet, 125 MCG PO DAILY No.137/Iron/Folic Acd ( Vitamin Tablet) 1 Each Tablet, 1 TAB PO DAILY Physical Examination Physical Examination GENERAL: Alert and oriented times three. BREAST: . ABDOMEN: Gravid and non-tender to touch. FETUS: Is vertex (VTX) by sterile vaginal examination (SVE), fetus is vertex (VTX) by Juvenal. EFW 8.5-9# HEART RATE: Regular rate and rhythm. LUNGS: Clear to auscultation (CTA). EXTREMITIES: No edema. No clonus. Deep tendon reflexes (DTRs) + 2. Laboratory Data [facility] Laboratory Tests 2 08/29/20 10:53: Serology Scanned Report Hepatitis B Testing 08/29/20 11:22: CBC/BMP Pertinent Laboratoy Data Blood Type: A- RBC Antibody Screen: Negative HIV: Negative Hepatitis B: Negative Hepatitis C: Negative Rapid Plasma Reagin: Nonreactive Rubella: Immune Chlamydia/Gonorrhea: Negative Group B Streptococcus: Negative Quad Screen Test: Declined Glucose Tolerance Test: 109 Anatomy Ultrasound Ultrasound Date: Apr 09, 2020 Placenta Location: Posterior Normal Anatomy: Yes Placenta Previa: No Estimated Weight (grams): 309 (85%) Other Ultrasounds 02/12/2020 dating 10w6d Steroid Therapy Steroid Therapy: No Vaginal Examination Dilation: 2cm (-3) Effacement: 50% Station: -3 Cervical Consistency: Soft Cervical Position: Posterior Presentation: Cephalic presentation Assessment Heart Rate (FHR): 135 Variability: Moderate Accelerations: Positive Decelerations: None Tocometer Contractions: Yes Frequency: irregular (irritability) Strength: palpated as mild Assessment/Plan Assessment Shantelle is a 40-year-old (G)2 para (P)1-0-0-1 at 39+2 weeks by 10-week ultrasound. Presents to Labor and Delivery (L&D) for induction of labor at term due to advanced maternal age. Denies LOF, bleeding or regular UC. Reports fetus is active. Plan Admit and orient. Distribution Center Associate and consent per consult Dr Salas Diet: Regular lunch then clear liquids Group B Streptococcus (GBS) negative. Labs and intravenous (IV) per unit protocol. Counseled on Pitocin and induction of labor (IOL). Lactated Ringers (LR): Bolus 500cmL, then at 125 mL/hr. Plans to labor ad jacob Anticipate normal spontaneous delivery (). C-S as appropriate. Zaida Brown CNM Aug 29, 2020 11:47
--- NOTE | 2020-08-29 18:03 | IPNPDOC ---
Text Note Date of Service The patient was seen on 08/29/20. NOTE Progress Rates contraction at 3-4, denies bloody show Pitocin @ 10mu UC 3-4 minutes x 45-60 seconds FH 135, Cat I SVE /-2, mid position AROM moderate amount clear fluid Anticipate NSVB VS,Fishbone, I+O VS, Fishbone, I+O Laboratory Tests 08/29/20 11:22 Vital Signs Date Time Temp Pulse Resp B/P (MAP) Pulse Ox O2 Delivery O2 Flow Rate FiO2 08/29/20 15:50 98.5 89 18 112/59 (76) Zaida Brown CNM Aug 29, 2020 18:03
[2020-08-30 01:09] LABS: CORD GAS HCO3 V 15.7 MEQ/L; CORD GAS PCO2 V 38.2 mmHg; CORD GAS PH V 7.233 UNITS; CORD GAS PO2 V 31.7 mmHg; CORD GAS SBC V 15.3 MEQ/L; CORD GAS TCO2 V 16.9 MEQ/L
[2020-08-30] MEDS ORDERED: OXYTOCIN DRIP 30 UNITS in IV 1 EA IV SCH (01:11)
[2020-08-30] MEDS ORDERED: ACETAMINOPHEN 500 MG TAB PO PRN (01:15)
[2020-08-30] MEDS ORDERED: ACETAMINOPHEN TAB 650MG DOSE (2X325MG) PO PRN (01:15)
[2020-08-30] MEDS ORDERED: IBUPROFEN 800 MG TAB PO PRN (01:15)
[2020-08-30] MEDS ORDERED: IBUPROFEN 600MG TAB PO PRN (01:15)
[2020-08-30] MEDS ORDERED: DOCUSATE SODIUM 100MG CAPSULE PO PRN (01:15)
[2020-08-30] MEDS ORDERED: RHOGAM 300 MCG (1500 IU) INJ (J2790) IM SCH (01:15)
[2020-08-30] MEDS ORDERED: ANUSOL HC CREAM 30GM TOP PRN (01:15)
[2020-08-30] MEDS ORDERED: BENZOCAINE 20% HEMORRHOIDAL OINTMENT 28GM TUBE TOP PRN (01:15)
[2020-08-30] MEDS ORDERED: MOM 30ML SUSPENSION UDC PO PRN (01:15)
[2020-08-30] MEDS ORDERED: MEASLES,MUMPS,RUBELLA VACCINE INJ (MMR-II) (90707) SC SCH (01:15)
--- NOTE | 2020-08-30 01:26 | DNPDOC ---
[facility] Delivery Note Delivery Note DATE OF DELIVERY: 08/30/2020 PREDELIVERY DIAGNOSIS: 39+1/7 weeks' gestation and labor. POST DELIVERY DIAGNOSIS: Delivered. PROCEDURE: Spontaneous vaginal delivery. PROVIDER: Zaida Brown CNM ANESTHESIA: None ESTIMATED BLOOD LOSS: 200 mL. FINDINGS: 10 pound 12 ounce, 4870gm female infant, Score 10/28/9, no nuchal cord. 1 minute 25 second shoulder dystocia DELIVERY SUMMARY: Patient is a 40-year-old 2 now para 2-0-0-2 who was admitted to labor and delivery for induction of labor. Pitocin was initiated followed by AROM clear fluid 1758 and labor did progress. She utilized physiologic coping methods during her labor. Fully dilated 0015. Delivery of head 0046:25, VENKATA. Shoulder dystocia relieved by MacRoberts, suprapubic pressure and maternal pushing efforts. Viable female delivered 0047:50. Spontaneous respirations with stimulation. Transitioned on maternal abdomen. Venous cord gas obtained, 7.233 with BE -11.0. Apgars 4/6/9. Terminal meconium noted at delivery. Placenta henderson, intact with 3v cord 0057. Fundus firmed with massage and IV pitocin bolus. Cervix, vagina and perineum inspected, intact. EBL 200ml. Sponge, sharp and instrument count correct. Parents are naming their daughter Zaida Brown CNM Aug 30, 2020 01:26
[2020-08-30] MEDS: METHYLERGONOVINE MALEATE 0.2 MG TAB PO SCH ×4 (01:56→19:59)
[2020-08-30 03:42] VITALS: BP 122/66
[2020-08-30] MEDS: LEVOTHYROXINE 137MCG TABLET (0.137MG) PO SCH (06:35)
[2020-08-30] MEDS ORDERED: PRENATAL VITAMINS CHEWABLE TABLET PO SCH (09:00)
[2020-08-30] MEDS: PRENATAL VITAMINS CHEWABLE TABLET PO SCH (09:59)
[2020-08-30 18:00] VITALS: BP 128/66
[2020-08-31] MEDS: METHYLERGONOVINE MALEATE 0.2 MG TAB PO SCH ×2 (01:44→06:25)
[2020-08-31 05:48] VITALS: BP 102/52
[2020-08-31] MEDS: LEVOTHYROXINE 137MCG TABLET (0.137MG) PO SCH (06:22)
[2020-08-31] MEDS: PRENATAL VITAMINS CHEWABLE TABLET PO SCH (09:27)
== END 2020-08-31 14:25 | disposition home or self-care (01) | DRG 560 ==
LOC: M LDI 10:45 → M OBS 08-30 03:25
PROVIDERS: ADMIT Advanced Practice Midwife; ATTEND Advanced Practice Midwife
PROC: 10907ZC Drainage of Amniotic Fluid, Therapeutic from Products of Conception, Via Natural or Artificial Opening (ICD-10-PCS; 2020-08-29)
PROC: 3E033VJ Introduction of Other Hormone into Peripheral Vein, Percutaneous Approach (ICD-10-PCS; 2020-08-29)
PROC: 10E0XZZ Delivery of Products of Conception, External Approach (ICD-10-PCS; principal; 2020-08-30)
DX: O99.284 Endocrine, nutritional and metabolic diseases complicating childbirth (principal); E03.9 Hypothyroidism, unspecified; Z3A.39 39 weeks gestation of pregnancy; Z37.0 Single live birth; O66.0 Obstructed labor due to shoulder dystocia

== ENCOUNTER → 2020-10-16 | Outpatient (REF) | payer OTHER ==
[2020-10-16 14:44] LABS: FREE T4 1.15 NG/DL (0.76-1.46); THYROID STIMULATING HORMONE 0.094 uIU/ML (0.358-3.740)
== END ==
LOC: M PLALAB 10:17
PROVIDERS: ATTEND Advanced Practice Midwife
DX: E03.9 Hypothyroidism, unspecified (principal)

== ENCOUNTER → 2020-10-23 | Outpatient (CLI) | payer OTHER | LOC: M LAB 08:22 | PROVIDERS: ATTEND Advanced Practice Midwife | DX: Z39.2 Encounter for routine postpartum follow-up (principal) ==

== ENCOUNTER → 2020-11-25 | Outpatient (REF) | payer OTHER ==
[2020-11-25 12:56] LABS: FREE T4 1.02 NG/DL (0.76-1.46); THYROID STIMULATING HORMONE 0.485 uIU/ML (0.358-3.740)
== END ==
LOC: M PLALAB 10:01
PROVIDERS: ATTEND Advanced Practice Midwife
DX: Z12.4 Encounter for screening for malignant neoplasm of cervix (principal); E03.9 Hypothyroidism, unspecified

== ENCOUNTER → 2021-03-26 | Outpatient (CLI) | payer OTHER ==
[2021-03-26 15:28] LABS: BASO # 0.1 10^3/uL (0.0-0.2); EOS # 0.3 10^3/uL (0.0-0.5); EOS % 4.8 % (0.0-3.0); HEMATOCRIT 40.7 % (36.0-47.0); HEMOGLOBIN 12.9 g/dl (12.0-15.5); LYMPH # 1.4 10^3/uL (1.5-5.0); LYMPH % 23.3 % (24.0-44.0); MEAN CORPUSCULAR HEMOGLOBIN 28.9 pg (27.0-33.0); MEAN CORPUSCULAR HGB CONC 31.7 g/dl (32.0-36.5); MEAN CORPUSCULAR VOLUME 91.1 fl (80.0-96.0); MONO # 0.3 10^3/uL (0.0-0.8); MONO % 5.7 % (2.0-8.0); NEUTROPHILS # 3.8 10^3/uL (1.5-8.5); NEUTROPHILS % 64.9 % (36.0-66.0); PLATELET COUNT, AUTOMATED 257 10^3/uL (150-450); RED BLOOD COUNT 4.47 10^6/uL (4.00-5.40); WHITE BLOOD COUNT 5.8 10^3/uL (4.0-10.0)
[2021-03-26 16:07] LABS: ALT/SGPT 25 U/L (12-78); BILIRUBIN,TOTAL 0.2 MG/DL (0.2-1.0); BLOOD UREA NITROGEN 16 MG/DL (7-18); CARBON DIOXIDE LEVEL 30 MEQ/L (21-32); CHLORIDE LEVEL 108 MEQ/L (98-107); CHOLESTEROL LEVEL 168 MG/DL (<200); CHOLESTEROL RISK RATIO 2.074 (<5); FREE T3 2.4 PG/ML (2.2-4.0); FREE T4 0.97 NG/DL (0.76-1.46); GLOMERULAR FILTRATION RATE > 60.0 (>60); GLUCOSE, FASTING 69 MG/DL (70-100); HDL CHOLESTEROL 81 MG/DL (>40); LDL CHOLESTEROL 76 MG/DL (<100); NON-HDL-C 87 MG/DL; POTASSIUM SERUM 4.5 MEQ/L (3.5-5.1); SODIUM LEVEL 141 MEQ/L (136-145); THYROID PEROXIDASE ANTIBODY < 28.0 U/ML (<60.0); THYROXINE (T4) 10.1 UG/DL (4.5-12.0); TOTAL PROTEIN 6.9 GM/DL (6.4-8.2); TRIGLYCERIDES LEVEL 55 MG/DL (<150)
[2021-03-26 16:44] LABS: HEMOGLOBIN A1c 5.4 %
== END ==
LOC: M WUC 10:36
PROVIDERS: ATTEND Nurse Practitioner Family
DX: Z00.01 Encounter for general adult medical examination with abnormal findings (principal); E03.9 Hypothyroidism, unspecified; L30.9 Dermatitis, unspecified; Z79.899 Other long term (current) drug therapy

== ENCOUNTER → 2021-06-24 | Outpatient (CLI) | payer OTHER ==
[2021-06-24 16:58] LABS: FREE T3 2.6 PG/ML (2.2-4.0); FREE T4 1.02 NG/DL (0.76-1.46); THYROID PEROXIDASE ANTIBODY 32.4 U/ML (<60.0); THYROID STIMULATING HORMONE 1.09 uIU/ML (0.358-3.740); THYROXINE (T4) 10.3 UG/DL (4.5-12.0)
== END ==
LOC: M WUC 14:50
PROVIDERS: ATTEND Nurse Practitioner Family
DX: E03.9 Hypothyroidism, unspecified (principal)

== ENCOUNTER → 2021-10-15 | Outpatient (CLI) | payer OTHER ==
[2021-10-15 16:50] LABS: FREE T3 2.2 PG/ML (2.2-4.0); THYROID STIMULATING HORMONE 0.693 uIU/ML (0.358-3.740); THYROXINE (T4) 9.1 UG/DL (4.5-12.0)
[2021-10-15 16:56] LABS: THYROID PEROXIDASE ANTIBODY < 28.0 U/ML (<60.0)
== END ==
LOC: M WUC 14:04
PROVIDERS: ATTEND Nurse Practitioner Family
DX: E03.9 Hypothyroidism, unspecified (principal)

== ENCOUNTER → 2021-12-30 | Outpatient (CLI) | payer OTHER ==
[2021-12-30 16:27] LABS: HEMATOCRIT 36.5 % (36.0-47.0); HEMOGLOBIN 12.1 g/dl (12.0-15.5); MEAN CORPUSCULAR HEMOGLOBIN 29.7 pg (27.0-33.0); MEAN CORPUSCULAR HGB CONC 33.2 g/dl (32.0-36.5); MEAN CORPUSCULAR VOLUME 89.7 fl (80.0-96.0); PLATELET COUNT, AUTOMATED 248 10^3/uL (150-450); RED BLOOD COUNT 4.07 10^6/uL (4.00-5.40); WHITE BLOOD COUNT 8.1 10^3/uL (4.0-10.0)
[2021-12-30 16:50] LABS: FREE T4 1.01 NG/DL (0.76-1.46)
[2021-12-30 17:29] LABS: HEPATITIS C VIRUS ABY INDEX 0.1 INDEX (<0.8)
== END ==
LOC: M WUC 14:51
PROVIDERS: ATTEND Specialist
DX: Z36.89 Encounter for other specified antenatal screening (principal)

== ENCOUNTER → 2022-02-09 | Outpatient (CLI) | payer OTHER | LOC: M WHC 12:57 | PROVIDERS: ATTEND Obstetrics & Gynecology | DX: O09.523 Supervision of elderly multigravida, third trimester (principal); Z3A.20 20 weeks gestation of pregnancy ==

== ENCOUNTER → 2022-04-14 | Outpatient (CLI) | payer OTHER ==
[2022-04-14 13:15] LABS: THYROID STIMULATING HORMONE 1.56 uIU/ML (0.358-3.740)
== END ==
LOC: M WUC 08:47
PROVIDERS: ATTEND Obstetrics & Gynecology
DX: O99.283 Endocrine, nutritional and metabolic diseases complicating pregnancy, third trimester (principal); Z3A.00 Weeks of gestation of pregnancy not specified

== ENCOUNTER → 2022-04-14 | Outpatient (CLI) | payer OTHER ==
[2022-04-14 12:39] LABS: HEMATOCRIT 34.8 % (36.0-47.0); HEMOGLOBIN 11.4 g/dl (12.0-15.5); MEAN CORPUSCULAR HEMOGLOBIN 29.8 pg (27.0-33.0); MEAN CORPUSCULAR HGB CONC 32.8 g/dl (32.0-36.5); MEAN CORPUSCULAR VOLUME 90.9 fl (80.0-96.0); PLATELET COUNT, AUTOMATED 219 10^3/uL (150-450); RED BLOOD COUNT 3.83 10^6/uL (4.00-5.40); WHITE BLOOD COUNT 10.8 10^3/uL (4.0-10.0)
[2022-04-14 13:15] LABS: FREE T4 1.01 NG/DL (0.76-1.46); THYROID STIMULATING HORMONE 1.61 uIU/ML (0.358-3.740)
[2022-04-14 13:55] LABS: GC DNA AMPLIFICATION NEGATIVE (NEGATIVE)
== END ==
LOC: M WUC 08:40
PROVIDERS: ATTEND Specialist
DX: Z34.82 Encounter for supervision of other normal pregnancy, second trimester (principal); Z3A.00 Weeks of gestation of pregnancy not specified

== ENCOUNTER → 2022-06-01 | Outpatient (REF) | payer OTHER | LOC: M SFHCWAGY 13:01 | PROVIDERS: ATTEND Obstetrics & Gynecology | DX: Z36.89 Encounter for other specified antenatal screening (principal); Z3A.36 36 weeks gestation of pregnancy ==

== ENCOUNTER → 2022-06-10 | Outpatient (CLI) | payer OTHER | LOC: M WHC 10:46 | PROVIDERS: ATTEND Advanced Practice Midwife | DX: O26.843 Uterine size-date discrepancy, third trimester (principal); Z3A.39 39 weeks gestation of pregnancy ==

== ENCOUNTER → 2022-08-02 | Outpatient (CLI) | payer OTHER ==
[~2022-08-02] MED LIST changes: +ACET-683 PO
[2022-08-02 15:14] LABS: THYROID STIMULATING HORMONE 0.338 uIU/ML (0.55-4.78)
[2022-08-02 15:16] LABS: FREE T4 1.25 NG/DL (0.89-1.76)
== END ==
LOC: M WUC 10:34
PROVIDERS: ATTEND Obstetrics & Gynecology
DX: E03.9 Hypothyroidism, unspecified (principal)

== ENCOUNTER → 2023-01-31 | Outpatient (CLI) | payer OTHER ==
[2023-01-31 17:29] LABS: FREE T4 1.23 NG/DL (0.89-1.76); THYROID STIMULATING HORMONE 0.246 uIU/ML (0.55-4.78)
== END ==
LOC: M WUC 10:22
PROVIDERS: ATTEND Student in an Organized Health Care Education/Training Program
DX: E03.9 Hypothyroidism, unspecified (principal)

== ENCOUNTER → 2023-03-18 | Outpatient (CLI) | payer OTHER ==
[2023-03-18 12:35] LABS: THYROID STIMULATING HORMONE 1.618 uIU/ML (0.55-4.78)
[2023-03-18 12:36] LABS: FREE T4 1.25 NG/DL (0.89-1.76)
== END ==
LOC: M WUC 09:32
PROVIDERS: ATTEND Student in an Organized Health Care Education/Training Program
DX: E03.9 Hypothyroidism, unspecified (principal)

== ENCOUNTER → 2023-05-11 | Outpatient (REF) | payer OTHER | LOC: M SFHCWAGY 18:23 | PROVIDERS: ATTEND Nurse Practitioner Family | DX: Z12.4 Encounter for screening for malignant neoplasm of cervix (principal) ==

== ENCOUNTER → 2023-06-09 | Outpatient (CLI) | payer OTHER ==
[2023-06-09 12:24] LABS: BASO # 0.1 10^3/uL (0.0-0.2); BASO % 0.8 % (0.0-1.0); EOS # 0.3 10^3/uL (0.0-0.5); EOS % 3.2 % (0.0-3.0); HEMATOCRIT 40.8 % (36.0-47.0); HEMOGLOBIN 13.4 g/dl (12.0-15.5); LYMPH # 1.6 10^3/uL (1.5-5.0); LYMPH % 20.2 % (24.0-44.0); MEAN CORPUSCULAR HEMOGLOBIN 29.8 pg (27.0-33.0); MEAN CORPUSCULAR HGB CONC 32.8 g/dl (32.0-36.5); MEAN CORPUSCULAR VOLUME 90.7 fl (80.0-96.0); MONO # 0.4 10^3/uL (0.0-0.8); MONO % 5.3 % (2.0-8.0); NEUTROPHILS # 5.5 10^3/uL (1.5-8.5); NEUTROPHILS % 70.2 % (36.0-66.0); PLATELET COUNT, AUTOMATED 280 10^3/uL (150-450); WHITE BLOOD COUNT 7.8 10^3/uL (4.0-10.0)
[2023-06-09 12:50] LABS: ALBUMIN 3.9 G/DL (3.2-5.2); ALKALINE PHOSPHATASE 119 U/L (46-116); ALT/SGPT 18 U/L (7.0-40); AST/SGOT 16 U/L (<34); BILIRUBIN,TOTAL 0.4 MG/DL (0.3-1.2); BLOOD UREA NITROGEN 13 MG/DL (9-23); CALCIUM LEVEL 8.7 MG/DL (8.5-10.1); CARBON DIOXIDE LEVEL 29 MMOL/L (20-31); CHLORIDE LEVEL 107 MMOL/L (98-107); CHOLESTEROL LEVEL 168 MG/DL (<200); CHOLESTEROL RISK RATIO 2.28 (<5); CREATININE FOR GFR 0.64 MG/DL (0.55-1.30); GLOMERULAR FILTRATION RATE > 60.0 (>58); GLUCOSE, FASTING 79 MG/DL (60-100); HDL CHOLESTEROL 73.6 MG/DL (>40); NON-HDL-C 94.4 MG/DL; POTASSIUM SERUM 4.5 MMOL/L (3.5-5.1); SODIUM LEVEL 142 MMOL/L (136-145); TOTAL PROTEIN 6.9 G/DL (5.7-8.2); TRIGLYCERIDES LEVEL 52 MG/DL (<150)
[2023-06-09 12:51] LABS: THYROID STIMULATING HORMONE 1.272 uIU/ML (0.55-4.78)
[2023-06-09 12:52] LABS: FOLATE > 24.00 NG/ML (>5.4); FREE T4 1.33 NG/DL (0.89-1.76); VITAMIN B12 LEVEL 653 PG/ML (211-911)
== END ==
LOC: M WUC 09:02
PROVIDERS: ATTEND Physician Assistant
DX: Z00.00 Encounter for general adult medical examination without abnormal findings (principal); R53.83 Other fatigue

== ENCOUNTER → 2023-07-04 | Outpatient (CLI) | payer OTHER ==
[2023-07-04 13:07] LABS: FOLLICLE STIMULATING HORMONE 8.8 mIU/ML; LUTEINIZING HORMONE 2.9 mIU/ML
[2023-07-04 13:08] LABS: ESTRADIOL 25.2 PG/ML
== END ==
LOC: M WUC 09:16
PROVIDERS: ATTEND Obstetrics & Gynecology
DX: N97.9 Female infertility, unspecified (principal)

== ENCOUNTER → 2023-08-31 | Outpatient (CLI) | payer OTHER | LOC: M RAD 10:25 | PROVIDERS: ATTEND Physician Assistant | DX: R22.41 Localized swelling, mass and lump, right lower limb (principal) ==

== ENCOUNTER → 2023-09-28 | Outpatient (CLI) | payer OTHER ==
[2023-09-28 12:53] LABS: HEMATOCRIT 37.3 % (36.0-47.0); HEMOGLOBIN 12.3 g/dl (12.0-15.5); MEAN CORPUSCULAR HEMOGLOBIN 29.5 pg (27.0-33.0); MEAN CORPUSCULAR VOLUME 89.4 fl (80.0-96.0); PLATELET COUNT, AUTOMATED 246 10^3/uL (150-450); RED BLOOD COUNT 4.17 10^6/uL (4.00-5.40)
[2023-09-28 13:25] LABS: THYROID STIMULATING HORMONE 2.076 uIU/ML (0.55-4.78)
[2023-09-28 13:55] LABS: HIV 1&2 SCREEN NEGATIVE (NEGATIVE)
[2023-09-28 14:03] LABS: HEPATITIS C VIRUS ABY INDEX 0.04 INDEX (<0.8)
[2023-09-28 14:25] LABS: GC DNA AMPLIFICATION NEGATIVE (NEGATIVE)
== END ==
LOC: M WUC 09:18
PROVIDERS: ATTEND Obstetrics & Gynecology
DX: O99.280 Endocrine, nutritional and metabolic diseases complicating pregnancy, unspecified trimester (principal)

== ENCOUNTER → 2023-11-17 | Outpatient (CLI) | payer OTHER | LOC: M RAD 11:49 | PROVIDERS: ATTEND Advanced Practice Midwife | DX: O32.1XX0 Maternal care for breech presentation, not applicable or unspecified (principal); Z3A.19 19 weeks gestation of pregnancy ==

== ENCOUNTER → 2024-01-02 | Outpatient (CLI) | payer OTHER ==
[2024-01-02 13:49] LABS: FREE T4 1.11 NG/DL (0.89-1.76); THYROID STIMULATING HORMONE 1.301 uIU/ML (0.55-4.78)
== END ==
LOC: M PLALAB 09:50
PROVIDERS: ATTEND Advanced Practice Midwife
DX: O99.280 Endocrine, nutritional and metabolic diseases complicating pregnancy, unspecified trimester (principal)

== ENCOUNTER → 2024-01-02 | Outpatient (CLI) | payer OTHER ==
[2024-01-02 13:22] LABS: HEMATOCRIT 36.8 % (36.0-47.0); HEMOGLOBIN 12.1 g/dl (12.0-15.5); MEAN CORPUSCULAR HGB CONC 32.9 g/dl (32.0-36.5); MEAN CORPUSCULAR VOLUME 91.1 fl (80.0-96.0); PLATELET COUNT, AUTOMATED 217 10^3/uL (150-450); RED BLOOD COUNT 4.04 10^6/uL (4.00-5.40); WHITE BLOOD COUNT 10.2 10^3/uL (4.0-10.0)
[2024-01-02 15:37] LABS: GC DNA AMPLIFICATION NEGATIVE (NEGATIVE)
== END ==
LOC: M PLALAB 08:46
PROVIDERS: ATTEND Specialist
DX: Z34.82 Encounter for supervision of other normal pregnancy, second trimester (principal)

== ENCOUNTER → 2024-02-17 | Outpatient (CLI) | payer OTHER | LOC: M RAD 10:15 | PROVIDERS: ATTEND Obstetrics & Gynecology | DX: O09.523 Supervision of elderly multigravida, third trimester (principal); Z3A.33 33 weeks gestation of pregnancy ==

== ENCOUNTER → 2024-03-05 | Outpatient (REF) | payer OTHER | LOC: M SFHCWAGY 16:55 | PROVIDERS: ATTEND Advanced Practice Midwife | DX: Z34.83 Encounter for supervision of other normal pregnancy, third trimester (principal); Z36.85 Encounter for antenatal screening for Streptococcus B ==

== ENCOUNTER → 2024-03-19 | Outpatient (CLI) | payer OTHER | LOC: M WHC 06:52 | PROVIDERS: ATTEND Obstetrics & Gynecology | DX: O09.513 Supervision of elderly primigravida, third trimester (principal); Z3A.37 37 weeks gestation of pregnancy ==

== ENCOUNTER 2024-03-30 18:50 | Inpatient (IN) | payer OTHER ==
[~2024-03-30] VITALS: Ht 167.6 cm; Wt 109.6 kg
[2024-03-30] MEDS ORDERED: HOME MED LIST COMPLETE! XX SCH (19:15)
[2024-03-30 19:16] VITALS: BP 136/63
[2024-03-30] MEDS: LACTATED RINGER'S 1000 ML IV STA (19:23)
[2024-03-30 19:57] LABS: HEMATOCRIT 33.8 % (36.0-47.0); HEMOGLOBIN 11.4 g/dl (12.0-15.5); MEAN CORPUSCULAR HEMOGLOBIN 29.3 pg (27.0-33.0); MEAN CORPUSCULAR HGB CONC 33.7 g/dl (32.0-36.5); MEAN CORPUSCULAR VOLUME 86.9 fl (80.0-96.0); PLATELET COUNT, AUTOMATED 187 10^3/uL (150-450); RED BLOOD COUNT 3.89 10^6/uL (4.00-5.40)
[2024-03-30 20:40] VITALS: BP 113/60
[2024-03-30] MEDS: miSOPROStol 50MCG 1/2 TABLET BUC ONE (20:40)
[2024-03-30 23:55] VITALS: BP 106/50
[2024-03-31] VITALS (23 sets, daily range): BP systolic 83–140; BP diastolic 46–81
[2024-03-31] MEDS: miSOPROStol 50MCG 1/2 TABLET PO ONE (02:23)
[2024-03-31] MEDS: LR 1,000 ML IV SCH (03:25)
[2024-03-31] MEDS: miSOPROStol 50MCG 1/2 TABLET PO SCH (07:45)
[2024-03-31 16:13] LABS: HEPATITIS C VIRUS ABY INDEX < 0.02 INDEX (<0.8)
[2024-03-31] MEDS: OXYTOCIN DRIP 30 UNITS in IV 1 EA IV SCH (20:13)
[2024-03-31] MEDS ORDERED: METHYLERGONOVINE MALEATE 0.2MG/ML 1ML VIAL IM PRN (23:35)
[2024-03-31] MEDS ORDERED: CARBOPROST TROMETHAMINE 250 MCG/ML AMP IM PRN (23:35)
[2024-03-31] MEDS ORDERED: OXYTOCIN INJ 10UNITS/ML 1ML VIAL IM PRN (23:35)
[2024-03-31] MEDS ORDERED: TRANEXAMIC ACID INJection 1,000 MG in NS 100 ML IV PRN (23:35)
[2024-03-31] MEDS ORDERED: LIDOCAINE 1% MDV 20ML VIAL INFIL PRN (23:35)
[2024-04-01] VITALS (10 sets, daily range): BP systolic 91–131; BP diastolic 52–76; O2SAT 96–97
[2024-04-01 02:06] LABS: CORD GAS ABE A -4.4; CORD GAS HCO3 A 21.9 MMOL/L; CORD GAS O2 SAT A 48.6 %; CORD GAS PH A 7.305 UNITS; CORD GAS PO2 A 21.3 mmHg; CORD GAS SBC A 19.8 MMOL/L; CORD GAS TCO2 A 23.3 MMOL/L
[2024-04-01 02:07] LABS: CORD GAS ABE V -3.4; CORD GAS HCO3 V 20.2 MMOL/L; CORD GAS O2 SAT V 71.3 %; CORD GAS PCO2 V 32.4 mmHg; CORD GAS PH V 7.413 UNITS; CORD GAS PO2 V 29.8 mmHg; CORD GAS SBC V 21.1 MMOL/L; CORD GAS TCO2 V 21.2 MMOL/L
[2024-04-01] MEDS: OXYTOCIN DRIP 30 UNITS in IV 1 EA IV PRN (02:11)
[2024-04-01] MEDS ORDERED: DIBUCAINE 1% OINTMENT 30GM TOP PRN (02:15)
[2024-04-01] MEDS ORDERED: METHYLERGONOVINE MALEATE 0.2 MG TAB PO PRN (02:15)
[2024-04-01] MEDS ORDERED: IBUPROFEN 600MG TAB PO PRN (02:15)
[2024-04-01] MEDS ORDERED: DOCUSATE SODIUM 100MG CAPSULE PO PRN (02:15)
[2024-04-01] MEDS: IBUPROFEN 800 MG TAB PO PRN (03:21)
[2024-04-01] MEDS: ACETAMINOPHEN 500 MG TAB PO PRN (03:21)
[2024-04-01] MEDS: PRENATAL VITAMINS CHEWABLE TABLET PO SCH (09:00)
[2024-04-01] MEDS: ACETAMINOPHEN TAB 650MG DOSE (2X325MG) PO PRN (16:14)
[2024-04-02 06:00] VITALS: BP 130/73; O2SAT 96
[2024-04-02] MEDS: RHO(D) IMMUNE GLOBULIN/MALTOSE 500MCG(2500IU)/2.2ML VIAL (WINRHO) IM SCH (08:35)
[2024-04-03] MEDS ORDERED: UNRESOLVED CLARIFICATION ENTRY XX SCH (00:01)
[2024-04-03] MEDS ORDERED: MEASLES,MUMPS,RUBELLA VACCINE INJ (MMR-II) SC.IMMUN ONE (09:00)
== END 2024-04-02 13:55 | disposition home or self-care (01) | DRG 560 ==
LOC: M LDI 18:50 → M OBS 04-01 04:02
PROVIDERS: ADMIT Obstetrics & Gynecology; ATTEND Obstetrics & Gynecology
PROC: 3E033VJ Introduction of Other Hormone into Peripheral Vein, Percutaneous Approach (ICD-10-PCS; 2024-03-30)
PROC: 10E0XZZ Delivery of Products of Conception, External Approach (ICD-10-PCS; principal; 2024-04-01)
DX: O36.63X0 Maternal care for excessive fetal growth, third trimester, not applicable or unspecified (principal); O32.6XX0 Maternal care for compound presentation, not applicable or unspecified; Z3A.39 39 weeks gestation of pregnancy; Z88.0 Allergy status to penicillin; Z88.8 Allergy status to other drugs, medicaments and biological substances; Z79.890 Hormone replacement therapy; O69.81X0 Labor and delivery complicated by cord around neck, without compression, not applicable or unspecified; Z37.0 Single live birth

== ENCOUNTER → 2024-05-16 | Outpatient (CLI) | payer OTHER, MEDICAID ==
[2024-05-16 12:29] LABS: FREE T4 1.34 NG/DL (0.89-1.76)
[2024-05-16 12:30] LABS: CHOLESTEROL RISK RATIO 2.91 (<5); HDL CHOLESTEROL 64.2 MG/DL (>40); LDL CHOLESTEROL 108.6 MG/DL (<100); NON-HDL-C 122.8 MG/DL; THYROID STIMULATING HORMONE 0.226 uIU/ML (0.55-4.78)
== END ==
LOC: M WUC 10:14
PROVIDERS: ATTEND Physician Assistant
DX: Z13.220 Encounter for screening for lipoid disorders (principal); E03.9 Hypothyroidism, unspecified

== ENCOUNTER 2024-07-13 06:15 | Day surgery (SDC) | payer OTHER ==
[~2024-07-13] VITALS: Ht 167.6 cm; Wt 96.6 kg
[~2024-07-13 06:15] MED LIST changes: +LEVO112T2 PO
[2024-07-13] MEDS ORDERED: LIDOCAINE 2% 100MG/5ML SDV (FOR ANES.) As Ordered ONE (06:52)
[2024-07-13] MEDS ORDERED: ONDANSETRON 4MG 2ML VIAL As Ordered ONE (06:52)
[2024-07-13] MEDS ORDERED: propofoL 200 MG/20 ML VIAL As Ordered ONE (06:53)
[2024-07-13] MEDS ORDERED: fentaNYL 100 MCG/2 ML INJECTION As Ordered ONE (06:57)
[2024-07-13] MEDS ORDERED: MIDAZOLAM INJ 2MG/2ML VIAL As Ordered ONE (06:57)
[2024-07-13] MEDS ORDERED: NS (Normal Saline) 0.9% 1,000 ML IV SCH ×2 (07:00→08:30)
[2024-07-13] MEDS: ceFAZolin SOD 2 GM in IV 1 EA IV ONE (07:49)
[2024-07-13] MEDS ORDERED: ACETAMINOPHEN 1000MG/100ML IV BAG As Ordered ONE (07:52)
[2024-07-13] MEDS ORDERED: ONDANSETRON 4MG 2ML VIAL IV PRN (08:30)
[2024-07-13] MEDS ORDERED: oxyCODONE 5MG TAB PO PRN (08:30)
[2024-07-13] MEDS ORDERED: fentaNYL 100 MCG/2 ML INJECTION IV PRN (08:30)
[2024-07-13] MEDS ORDERED: HYDROMORPHONE HCL 0.5 MG/ 0.5 ML SYRINGE IV PRN (08:30)
[2024-07-13 09:20] VITALS: BP 113/61; TEMP 96.7; O2SAT 99
== END 2024-07-13 10:15 | disposition home or self-care (01) ==
LOC: M SDC 06:15
PROVIDERS: ATTEND Surgery
DX: D17.23 Benign lipomatous neoplasm of skin and subcutaneous tissue of right leg (principal); E03.9 Hypothyroidism, unspecified; Z79.890 Hormone replacement therapy; Z88.1 Allergy status to other antibiotic agents; Z88.8 Allergy status to other drugs, medicaments and biological substances
CPT/HCPCS: 27337; 81025; 88304; C9290; J0131; J0665; J0690; J1100; J2250; J2405; J3010

== ENCOUNTER → 2024-09-05 | Outpatient (CLI) | payer OTHER ==
[2024-09-05 11:41] LABS: FREE THYROXINE INDEX 3.5 % (1.3-4.8); T UPTAKE 32.6 % (22.5-37.0); THYROID STIMULATING HORMONE 1.195 uIU/ML (0.55-4.78); THYROXINE (T4) 10.6 UG/DL (4.5-10.9)
== END ==
LOC: M WUC 08:50
PROVIDERS: ATTEND Obstetrics & Gynecology
DX: E03.9 Hypothyroidism, unspecified (principal)

== ENCOUNTER → 2024-10-25 | Outpatient (REF) | payer OTHER | LOC: M SFHCWAGY 13:20 | PROVIDERS: ATTEND Nurse Practitioner Family | DX: Z12.4 Encounter for screening for malignant neoplasm of cervix (principal); Z11.51 Encounter for screening for human papillomavirus (HPV) ==

== ENCOUNTER → 2025-04-29 | Outpatient (CLI) | payer OTHER ==
[2025-04-29 17:48] LABS: BASO # 0.1 10^3/uL (0.0-0.2); BASO % 0.8 % (0.0-1.0); EOS # 0.2 10^3/uL (0.0-0.5); EOS % 2.8 % (0.0-3.0); LYMPH # 1.9 10^3/uL (1.5-5.0); LYMPH % 24.6 % (24.0-44.0); MONO # 0.5 10^3/uL (0.0-0.8); MONO % 6.9 % (2.0-8.0); NEUTROPHILS # 5.1 10^3/uL (1.5-8.5); NEUTROPHILS % 64.8 % (36.0-66.0); PLATELET COUNT, AUTOMATED 287 10^3/uL (150-450)
[2025-04-29 17:49] LABS: APPEARANCE, URINE CLEAR (CLEAR); BACTERIA, URINE AUTO NEGATIVE (NEGATIVE); BILIRUBIN, URINE AUTO NEGATIVE (NEGATIVE); BLOOD, URINE BLOOD NEGATIVE (NEGATIVE); GLUCOSE, URINE (UA) AUTO NEGATIVE (NEGATIVE); KETONE, URINE AUTO NEGATIVE (NEGATIVE); LEUKOCYTE ESTERASE, URINE AUTO NEGATIVE (NEGATIVE); MUCUS, URINE SMALL (NEGATIVE); NITRITE, URINE AUTO NEGATIVE (NEGATIVE); PROTEIN, URINE AUTO NEGATIVE (NEGATIVE); RBC, URINE AUTO 0 /HPF (0-3); SPECIFIC GRAVITY URINE AUTO 1.009 (1.002-1.035); SQUAMOUS EPITHELIAL CELL UR AU 1 /HPF (0-6); UROBILINOGEN, URINE AUTO 0.2 mg/dL (0.0-2.0); WBC, URINE AUTO 0 /HPF (0-3)
[2025-04-29 18:03] LABS: ALT/SGPT 13 U/L (7.0-40); AST/SGOT 19 U/L (<34); CALCIUM LEVEL 9.0 MG/DL (8.5-10.1); CARBON DIOXIDE LEVEL 29 MMOL/L (20-31); CHLORIDE LEVEL 104 MMOL/L (98-107); CHOLESTEROL LEVEL 177 MG/DL (<200); CHOLESTEROL RISK RATIO 2.67 (<5); CREATININE FOR GFR 0.71 MG/DL (0.55-1.30); GLOMERULAR FILTRATION RATE > 90.0 (>58); LDL CHOLESTEROL 88.3 MG/DL (<100); NON-HDL-C 110.9 MG/DL; POTASSIUM SERUM 4.1 MMOL/L (3.5-5.1); SODIUM LEVEL 140 MMOL/L (136-145); TRIGLYCERIDES LEVEL 113 MG/DL (<150)
[2025-04-29 18:06] LABS: FREE T4 1.37 NG/DL (0.89-1.76); TOTAL 25(OH) VITAMIN D 32.8 NG/ML (20.0-100.0)
[2025-04-29 18:41] LABS: ESTIMATED AVERAGE GLUCOSE 105.0 MG/DL (60-110)
== END ==
LOC: M WUC 15:13
PROVIDERS: ATTEND Internal Medicine
DX: Z00.00 Encounter for general adult medical examination without abnormal findings (principal); E03.9 Hypothyroidism, unspecified

== ENCOUNTER → 2025-06-26 | Outpatient (CLI) | payer OTHER ==
[2025-06-26 17:38] LABS: FREE T4 1.23 NG/DL (0.89-1.76)
== END ==
LOC: M WUC 14:11
PROVIDERS: ATTEND Internal Medicine
DX: E03.8 Other specified hypothyroidism (principal)